=== PATIENT | female | born 1980 | race Caucasian/White ===

== ENCOUNTER 2016-04-01 01:57 | Inpatient (IN) | payer OTHER ==
[~2016-04-01] VITALS: Ht 180.3 cm; Wt 91.9 kg
[2016-04-01 03:50] VITALS: BP 152/99; RESP 20
[2016-04-01 03:51] VITALS: Ht 180.3 cm; Wt 91.9 kg
[2016-04-01] MEDS ORDERED: ONDANSETRON 4 MG INJ IV PRN (04:00)
[2016-04-01] MEDS: morphine 4 MG/ML VIAL IV PRN ×4 (04:17→19:50)
[2016-04-01 07:39] VITALS: BP 142/83; RESP 20
[2016-04-01] MEDS: FAMOTIDINE 20 MG INJ IV SCH ×2 (08:12→21:45)
[2016-04-01 08:32] LABS: BASOPHILS % 0.4 % (0.0-2.0); EOSINOPHILS % 0.4 % (0.0-7.0); HEMATOCRIT 34.3 % (37.0-47.0); HEMOGLOBIN 11.8 g/dl (12.0-16.0); LYMPHOCYTES # 2.7 10^3/ul (0.8-2.9); MEAN CORPUSCULAR HEMOGLOBIN 31.1 pg (29.0-33.0); MEAN CORPUSCULAR HGB CONC 34.5 g/dl (32.0-37.0); MEAN CORPUSCULAR VOLUME 90.2 fl (82.0-101.0); MONOCYTE # 0.9 10^3/ul (0.3-0.9); MONOCYTES % 7.8 % (0.0-11.0); NEUTROPHIL # 8.4 10^3/ul (1.6-7.5); NEUTROPHILS % 69.4 % (39.0-77.0); PLATELET COUNT 247 10^3/UL (140-440); UNCORRECTED WBC 12.1 10^3/ul (4.8-10.8); WHITE BLOOD COUNT 12.1 10^3/ul (4.8-10.8)
[2016-04-01] MEDS: DEXTROSE 5%-0.45% NACL 1,000 ML IV SCH ×2 (08:33→17:59)
[2016-04-01 08:35] LABS: CONDITION 1
[2016-04-01 08:49] LABS: ALBUMIN 3.2 g/dl (3.3-4.9)
[2016-04-01 08:50] LABS: POTASSIUM 3.5 mmol/L (3.5-5.1)
[2016-04-01 08:52] LABS: ALBUMIN/GLOBULIN RATIO 1.03; BILIRUBIN,INDIRECT 0.3 mg/dl (0-1.1); BILIRUBIN,TOTAL 0.3 mg/dl (0.2-1.3); CREATININE 0.7 mg/dl (0.44-1.00); TOTAL PROTEIN 6.3 g/dl (6.1-8.1)
[2016-04-01 08:53] LABS: CALCIUM 8.3 mg/dl (8.4-10.2)
[2016-04-01] MEDS ORDERED: metroNIDAZOLE 500 MG/NS (PMX) 100 ML IVPB SCH (11:00)
--- NOTE | 2016-04-01 11:06 | PN ---
Date/Time of Note Date/Time of Note DATE: 04/01/16 TIME: 11:00 Assessment/Plan VTE Prophylaxis VTE Prophylaxis Intervention: LMWH Lines/Catheters IV C[facility]ter [facility]from [facility] Saline Lock Assessment/Plan Chief Complaint/Hosp Course Hospitalist coverage S: 35-year-old female with abdominal pain/n/v for about 10 days. Had some chicken tacos. Significant other had tacos. No hematemesis or hematochezia. Subjective fever and chills. Fatigue and loss of appetite. Was able to go to work. On the seventh, patient went to ER. Hydrated and continue supportive care. Was not given antibiotics. Symptoms continued along with diarrhea. Pepto-Bismol was taken and this may have accounted for her dark stools. No previous similar problems. No hematuria. Only social alcohol. Treatment included Tylenol and rare Motrin. CAT scan concerning for multicentric stranding. O:vss PE No pallor adenopathy icterus Reg, no m/r/g ctab Bs+/ mild hyperactive. No r/r/g, flank ecchymosis. No cvat No edema/erythema or telangiectasias A/P 1. Colitis -infectious vs vascular; stable consult GI. No FH stroke/ vasculitis. Father had heart valve issues. Aunt w colon ca. 2. Anemia 3. Ho C-sec but no bleeding tendencies. Problems: Exam/Review of Systems Vital Signs Vitals Vital Signs Date Time Temp Pulse Resp B/P Pulse Ox O2 Delivery O2 Flow Rate FiO2 04/01/16 07:39 98.9 75 20 142/83 04/01/16 03:50 99 Intake and Output 03/31/16 03/31/16 04/01/16 15:00 23:00 07:00 Intake Total 240 ml Balance 240 ml Results Result Diagram: 04/01/16 0730 04/01/16 0730 Results 24 hrs Laboratory Tests Test 04/01/16 07:30 Alanine Aminotransferase (ALT/SGPT) 46 Albumin 3.2 L Albumin/Globulin Ratio 1.03 Alkaline Phosphatase 109 Anion Gap 15 Aspartate Amino Transf (AST/SGOT) 20 Basophils # 0.0 Basophils % 0.4 Blood Urea Nitrogen 5 L Calcium Level 8.3 L Carbon Dioxide Level 26 Chloride Level 101 Creatinine 0.70 Direct Bilirubin 0.00 Eosinophils # 0.0 Eosinophils % 0.4 Globulin 3.10 Glucose Level 96 Hematocrit 34.3 L Hemoglobin 11.8 L Indirect Bilirubin 0.3 Lymphocytes # 2.7 Lymphocytes % 22.0 Mean Corpuscular Hemoglobin 31.1 Mean Corpuscular Hemoglobin Concent 34.5 Mean Corpuscular Volume 90.2 Mean Platelet Volume 9.0 Monocytes # 0.9 Monocytes % 7.8 Neutrophils # 8.4 H Neutrophils % 69.4 Nucleated Red Blood Cells # 0.0 Nucleated Red Blood Cells % 0.0 Platelet Count 247 Potassium Level 3.5 Red Blood Count 3.80 L Red Cell Distribution Width 13.0 Sodium Level 138 Total Bilirubin 0.3 Total Protein 6.3 White Blood Count 12.1 H Medications Medications Current Medications Morphine Sulfate (morphine) 3 mg Q4H PRN IV PAIN LEVEL 6-10 Last administered on 04/01/16 08:27; Admin Dose 3 MG; Start 04/01/16 at 04:00 Ondansetron HCl (Zofran Inj) 4 mg Q6H PRN IV NAUSEA AND/OR VOMITING; Start at 04:00 Famotidine 20 mg 20 mg BID IV Last administered on 04/01/16 08:12; Admin Dose 20 MG; Start 04/01/16 at 09:00 Dextrose/Sodium Chloride (D5-1/2ns) 1,000 ml @ 100 mls/hr Q10H IV Last administered on 04/01/16 08:33; Admin Dose 100 MLS/HR; Start 04/01/16 at 08:30 ALLA PHAN MD Apr 01, 2016 11:06
[2016-04-01] MEDS ORDERED: ENOXAPARIN 40 MG/0.4 ML SYG SC SCH (12:00)
--- NOTE | 2016-04-01 12:58 | CONS ---
Date/Time of Note Date/Time of Note DATE: 04/01/16 TIME: 12:45 Assessment/Plan Assessment/Plan Additional Assessment/Plan Abdominal pain/nausea/vomiting Diarrhea * Concern for thrombophlebitis of the superior mesenteric vein * Stat CT abdomen angiogram ordered * Rule out other etiology * Review IBD serology * Monitor labs * Recommend surgery consult * Recommend vascular consult * Recommend anticoagulation * Stool OB * C. difficile stool test Further recommendations depend on clinical course Consultation Date/Type/Reason Admit Date/Time Apr 01, 2016 at 03:26 Hx of Present Illness 35 YO that presented to the ED with worsening GI complaints. Pt states that symptoms started TuesdayMar 22. She reported diffuse abdominal pain, nausea, non bloody bilious vomiting, and diarrhea that worsened over several days. She states that symptoms started to andriy on briefly but then intensified on Tuesday and she had a fever of 102.7. She later went [place] on TuesdayMar 25 because symptoms were so intense. Pt was treated with fluids and pain medication. She was told imaging suggested gallbladder sludge and was told LFTs were elevated. She was discharged and instructed to continue to hydrate. Pt states that symptoms improved slowly but have returned. She tried Pepto Bismol without relief in symptoms and she reported black stools shortly after ingestion. Pt states that warm baths helped with pain symptoms. She denies chills, sick contacts, travel outside [place], new medications, and chronic conditions. She went to [place] again on Tuesday and was treated for pain and nausea. Pt transferred to [facility] secondary to insurance capitation. Past Medical History Medical History: no pertinent history Past Surgical History Past Surgical Hx: noncontributory, other Social History Smoking Status: Never smoker Exam/Review of Systems Vital Signs Vitals Vital Signs Date Time Temp Pulse Resp B/P Pulse Ox O2 Delivery O2 Flow Rate FiO2 04/01/16 07:39 98.9 75 20 142/83 04/01/16 03:50 99 Intake and Output 03/31/16 03/31/16 04/01/16 15:00 23:00 07:00 Intake Total 240 ml Balance 240 ml Exam Constitutional: alert, oriented, well developed Psych: nl mood/affect, no complaints Head: atraumatic Eyes: EOMI, nl conjunctiva, nl lids, nl sclera ENMT: mucosa pink and moist, nl external ears & nose, nl lips & teeth, nl nasal mucosa & septum Respiratory: normal air movement Cardiovascular: regular rate and rhythm Gastrointestinal: soft, tender (Diffuse lower abdomen) Musculoskeletal: nl extremities to inspection Neurological: CAREER DEVELOPER II-XII intact Results Result Diagram: 04/01/16 0730 04/01/16 0730 Results 24 hrs Laboratory Tests Test 04/01/16 07:30 Alanine Aminotransferase (ALT/SGPT) 46 Albumin 3.2 L Albumin/Globulin Ratio 1.03 Alkaline Phosphatase 109 Anion Gap 15 Aspartate Amino Transf (AST/SGOT) 20 Basophils # 0.0 Basophils % 0.4 Blood Urea Nitrogen 5 L Calcium Level 8.3 L Carbon Dioxide Level 26 Chloride Level 101 Creatinine 0.70 Direct Bilirubin 0.00 Eosinophils # 0.0 Eosinophils % 0.4 Globulin 3.10 Glucose Level 96 Hematocrit 34.3 L Hemoglobin 11.8 L Indirect Bilirubin 0.3 Lymphocytes # 2.7 Lymphocytes % 22.0 Mean Corpuscular Hemoglobin 31.1 Mean Corpuscular Hemoglobin Concent 34.5 Mean Corpuscular Volume 90.2 Mean Platelet Volume 9.0 Monocytes # 0.9 Monocytes % 7.8 Neutrophils # 8.4 H Neutrophils % 69.4 Nucleated Red Blood Cells # 0.0 Nucleated Red Blood Cells % 0.0 Platelet Count 247 Potassium Level 3.5 Red Blood Count 3.80 L Red Cell Distribution Width 13.0 Serum HCG, Qualitative NEGATIVE Sodium Level 138 Total Bilirubin 0.3 Total Protein 6.3 White Blood Count 12.1 H Medications Medications Current Medications Morphine Sulfate (morphine) 3 mg Q4H PRN IV PAIN LEVEL 6-10 Last administered on 04/01/16 08:27; Admin Dose 3 MG; Start 04/01/16 at 04:00 Ondansetron HCl (Zofran Inj) 4 mg Q6H PRN IV NAUSEA AND/OR VOMITING; Start at 04:00 Famotidine 20 mg 20 mg BID IV Last administered on 04/01/16 08:12; Admin Dose 20 MG; Start 04/01/16 at 09:00 Dextrose/Sodium Chloride 1,000 ml @ 100 mls/hr Q10H IV Last administered on 08:33; Admin Dose 100 MLS/HR; Start 04/01/16 at 08:30 Ciprofloxacin/ Dextrose 100 ml @ 100 mls/hr Q12 IVPB ; Start 04/01/16 at 12:00 Metronidazole (Flagyl 500 Mg (Pmx)) 100 ml @ 100 mls/hr Q8 IVPB ; Start at 11:00 Enoxaparin Sodium (Lovenox) 40 mg DAILY SC ; Start 04/01/16 at 12:00 DANIEL FIELDS MD Apr 01, 2016 12:58
[2016-04-01 13:27] LABS: AMYLASE 54 U/L (11-123)
--- NOTE | 2016-04-01 13:50 | CONS ---
DATE OF ADMISSION: 04/01/2016 DATE OF CONSULTATION: 04/01/2016 TYPE OF CONSULTATION: Vascular surgery consultation. Dear Doctors: Ms. Tristan is a 35-year-old female who recently was admitted to [facility] to being transferred for abdominal pain that she has had over the course of 10 days. The patient mentions that about a week ago she went to [facility] for evaluation of abdominal pain that has been mainly periumbilical. At that time, they had seen some sludge upon ultrasound evaluation of her gal lbladder, otherwise the patient was sent home. She had a recurrence of the abdominal pain, which st ill persisted and had not resolved last night, in which she underwent a CT angiogram that identified the patient having a thrombosis of her superior mesenteric vein. At the moment, the patient has ab dominal pain, scale of 5 to 6 out of 10. She denies shortness of breath, chest pain, nausea, vomiti ng, fever or chills. She is not really able to eat much. She denies lower extremity claudication o r rest pain-like symptoms. She denies any family history of hypercoagulable state. No previous his tory of deep vein thrombosis, [place], or stroke. Patient denies any melena or hematochezia. REVIEW OF SYSTEMS: A 12-point review was performed and negative except for what is mentioned in the HPI. PAST MEDICAL HISTORY: None. PAST SURGICAL HISTORY: None. FAMILY HISTORY: Denies any hypercoagulable state. history: The patient has had 3 miscarr iages. All miscarriages had occurred during 5 to 6 weeks of her gestation. Her 4th child had an ear ly onset of labor at 36 weeks. SOCIAL HISTORY: Denies current use of tobacco, alcohol or illicit drug use. PHYSICAL EXAMINATION: GENERAL: Alert and oriented x3. Some abdominal discomfort. HEENT: Normocephalic, atraumatic. PERRLA, EOMI. Mucosa moist. NECK: Supple. No carotid bruit. PULMONARY: Clear to auscultation bilaterally. No crackles. CARDIOVASCULAR: S1, S2 present. No murmurs. ABDOMEN: Soft, truncal obesity. Tenderness in the periumbilical region. Pain scale of 5 to 6 out of 10. No peritonitis. EXTREMITIES: Lower extremity palpable femoral pulses, palpable pedal pulses. Motor and sensory int act. Capillary refill 2 to 3 seconds. No ulcers identified. ASSESSMENT AND PLAN: Superior mesenteric vein thrombosis: It seems the patient has developed a mes enteric vein thrombus that seems to be a bit unusual, given her age. The patient has denied any rec ent history of alcohol use or a family history of hypercoagulable state. I am concerned, given her age, that the patient has developed a thrombosis of her mesenteric vein and would recommend further workup. For now, would recommend starting the patient on anticoagulation, preferably Lovenox b.i.d. or a heparin drip. Would recommend obtaining a formal CT venogram to better delineate her venous return. This can be c ombined with an angiogram with arterial and delayed phase venous. Would recommend a general surgery evaluation, as the patient may require further intervention if she has further propagation of her thrombosis. From a vascular surgery standpoint, will continue to mo nitor the patient for now. Would further recommend hypercoagulable workup and hematology evaluation, as the patient has a histo ry of miscarriages x3 in her first trimester. Discussed the findings, plan and management with the patient and she understands. Thank you for allowing us to partake in the care of your patient. Please call with any questions. Dictated By: IBIS ESQUIVEL/NAOMI Conf#: [id number] DID#: [id number]
--- NOTE | 2016-04-01 14:30 | RADRPT ---
PROCEDURE: XR Chest. CLINICAL INDICATION: Medical screening TECHNIQUE: Chest AP portable. COMPARISON: No comparison available. FINDINGS: The mediastinal structures are unremarkable. The heart is normal in size and configuration. The pu lmonary vascularity is normal. The lung villarreal are unremarkable. No consolidation is identified. The pleural spaces are unremarkable. The axial skeleton is unremarkable. IMPRESSION: No active intrathoracic disease. RPTAT: HGDB .Reji Gonzalez MD, MD Date Time Electronically viewed and signed by .Reji Gonzalez MD, MD on 04/01/2016 14:29 .B/
[2016-04-01] MEDS ORDERED: SOD CHLORIDE 0.9% 100 ML ONE (17:05)
[2016-04-01] MEDS ORDERED: IOHEXOL 100 ML ONE (17:05)
[2016-04-01] MEDS ORDERED: IOHEXOL 350MG/ML 50 ML BTL ONE (17:06)
[2016-04-01] MEDS: CIPROFLOXACIN 200 MG/D5W IVPB 100 ML IVPB SCH ×2 (17:56→23:17)
--- NOTE | 2016-04-01 18:18 | CONS ---
Date/Time of Note Date/Time of Note DATE: 04/01/16 TIME: 18:04 Assessment/Plan Assessment/Plan Chief Complaint/Hosp Course ASSESSMENT AND PLAN: Hypercoagulable state with acute Superior mesenteric vein thrombosis: note that pt is on control- d/w pt - will be dc unusual event, given her age. The patient has denied any recent history of alcohol use, travel or a family history of hypercoagulable state. agree with anticoagulation, preferably Lovenox b.i.d at therapeutic dose proceed with hypercoagulable workup , incl tumor markers SURG and vascular surg f-up LEUKOCYTOSIS- WITH N DIFF looks reactive monitor ANEMIA- N CYTIC WITH N RDW COMPLETE W-UP MONITOR BLOOD COUNT CLOSELY history of miscarriages x3 in her first trimester. check JASSI and lupus panel Discussed the findings, plan and management with the patient and she understands. Thank you for allowing us to partake in the care of your patient. Please call with any questions. d/w Dr ALLA PHAN Problems: Consultation Date/Type/Reason Admit Date/Time Apr 01, 2016 at 03:26 Date of Consultation: Apr 01, 2016 [facility] thrombosis Referring Provider: ALLA PHAN MD Hx of Present Illness Ms. Tristan is a 35-year-old female who recently was admitted to [facility] secondary to being transferred for abdominal pain that she has had over the course of 10 days. The patient mentions that about a week ago she went to [place] [facility] for evaluation of abdominal pain that has been mainly periumbilical. At that time, they had seen some sludge upon ultrasound evaluation of her gallbladder, otherwise the patient was sent home. She had a recurrence of the abdominal pain, which still persisted and had not resolved last night, in which she underwent a CT angiogram that identified the patient having a thrombosis of her superior mesenteric vein. At the moment, the patient has abdominal pain, scale of 5 to 6 out of 10. She denies shortness of breath, chest pain, nausea, vomiting, fever or chills. She is not really able to eat much. She denies lower extremity claudication or rest pain-like symptoms. She denies any family history of hypercoagulable state. No previous history of deep vein thrombosis, [place], or stroke. Patient denies any melena or hematochezia. note that pt is on control REVIEW OF SYSTEMS: A 12-point review was performed and negative except for what is mentioned in the HPI. PAST MEDICAL HISTORY: None. PAST SURGICAL HISTORY: None. FAMILY HISTORY: Denies any hypercoagulable state. history: The patient has had 3 miscarriages. All miscarriages had occurred during 5 to 6 weeks of her gestation. Her 4th child had an early onset of labor at 36 weeks. SOCIAL HISTORY: Denies current use of tobacco, alcohol or illicit drug use. Psychological: nl mood/affect, no complaints Past Medical History Medical History: no pertinent history Past Surgical History Past Surgical Hx: noncontributory, other Social History Smoking Status: Never smoker Exam/Review of Systems Vital Signs Vitals Vital Signs Date Time Temp Pulse Resp B/P Pulse Ox O2 Delivery O2 Flow Rate FiO2 04/01/16 07:39 98.9 75 20 142/83 04/01/16 03:50 99 Intake and Output 03/31/16 03/31/16 04/01/16 15:00 23:00 07:00 Intake Total 240 ml Balance 240 ml Exam PHYSICAL EXAMINATION: GENERAL: Alert and oriented x3. Some abdominal discomfort. HEENT: Normocephalic, atraumatic. PERRLA, EOMI. Mucosa moist. NECK: Supple. No carotid bruit. PULMONARY: Clear to auscultation bilaterally. No crackles. CARDIOVASCULAR: S1, S2 present. No murmurs. ABDOMEN: Soft, truncal obesity. Tenderness in the periumbilical region. Pain scale of 5 to 6 out of 10. No peritonitis. EXTREMITIES: Lower extremity palpable femoral pulses, palpable pedal pulses. Motor and sensory intact. Capillary refill 2 to 3 seconds. No ulcers identified. Results Result Diagram: 04/01/16 0730 04/01/16 0730 Results 24 hrs Laboratory Tests Test 04/01/16 07:30 Alanine Aminotransferase (ALT/SGPT) 46 Albumin 3.2 L Albumin/Globulin Ratio 1.03 Alkaline Phosphatase 109 Amylase Level 54 Anion Gap 15 Aspartate Amino Transf (AST/SGOT) 20 Basophils # 0.0 Basophils % 0.4 Blood Urea Nitrogen 5 L Calcium Level 8.3 L Carbon Dioxide Level 26 Carcinoembryonic Antigen < 0.3 Chloride Level 101 Creatinine 0.70 Direct Bilirubin 0.00 Eosinophils # 0.0 Eosinophils % 0.4 Globulin 3.10 Glucose Level 96 Hematocrit 34.3 L Hemoglobin 11.8 L Indirect Bilirubin 0.3 Lipase 24 Lymphocytes # 2.7 Lymphocytes % 22.0 Mean Corpuscular Hemoglobin 31.1 Mean Corpuscular Hemoglobin Concent 34.5 Mean Corpuscular Volume 90.2 Mean Platelet Volume 9.0 Monocytes # 0.9 Monocytes % 7.8 Neutrophils # 8.4 H Neutrophils % 69.4 Nucleated Red Blood Cells # 0.0 Nucleated Red Blood Cells % 0.0 Platelet Count 247 Potassium Level 3.5 Red Blood Count 3.80 L Red Cell Distribution Width 13.0 Serum HCG, Qualitative NEGATIVE Sodium Level 138 Total Bilirubin 0.3 Total Protein 6.3 White Blood Count 12.1 H Medications Medications Current Medications Morphine Sulfate (morphine) 3 mg Q4H PRN IV PAIN LEVEL 6-10 Last administered on 04/01/16 13:08; Admin Dose 3 MG; Start 04/01/16 at 04:00 Ondansetron HCl (Zofran Inj) 4 mg Q6H PRN IV NAUSEA AND/OR VOMITING; Start at 04:00 Famotidine 20 mg 20 mg BID IV Last administered on 04/01/16 08:12; Admin Dose 20 MG; Start 04/01/16 at 09:00 Dextrose/Sodium Chloride 1,000 ml @ 100 mls/hr Q10H IV Last administered on 08:33; Admin Dose 100 MLS/HR; Start 04/01/16 at 08:30 Ciprofloxacin/ Dextrose (Cipro Ivpb) 100 ml @ 100 mls/hr Q12 IVPB Last administered on 04/01/16 17:56; Admin Dose 100 MLS/HR; Start 04/01/16 at 12:00 Enoxaparin Sodium 40 mg 40 mg DAILY SC Last administered on 04/01/16 13:36; Admin Dose 40 MG; Start 04/01/16 at 12:00 Metronidazole (Flagyl 500 Mg (Pmx)) 100 ml @ 100 mls/hr Q8 IVPB ; Start at 22:00 ALY HAMILTON MD Apr 01, 2016 18:17
--- NOTE | 2016-04-01 19:00 | RADRPT ---
PROCEDURE: CTA abdomen and pelvis with bilateral lower extremity runoff CLINICAL INDICATION: Abdominal pain, lower extremity pain and claudication. Possible thrombophleb itis of the superior mesenteric vein. TECHNIQUE: 0.63 mm axial images were obtained through the abdomen, pelvis and bilateral lower extr emities after the IV administration of 120 cc Omnipaque 350 IV contrast. 3-D, coronal and sagittal reconstructions were obtained. Automated exposure control was utilized. DLP = 1248.6 mGy-cm. CTDiVo l = 24.7, 8.2 mGy. One or more of the following post reduction techniques were used: - Automated exposure control. - Adjustment of the mA and/or Kv according to patient's size. - Use of iterative reconstruction technique COMPARISON: None available FINDINGS: Evaluation of the arterial vasculature is slightly limited secondary to suboptimal timing of the con trast bolus. CTA abdomen/pelvis: The abdominal aorta is patent throughout its entirety. No atherosclerotic disease is identified in the aorta. No aneurysm or stenosis is observed. The origin of the celiac artery is widely patent. Grossly normal filling of the visualized distal b ranches of the celiac artery is observed. The origin of the superior mesenteric artery is widely patent. Normal filling of the distal branche s of the superior mesenteric artery is observed. Origins of bilateral renal arteries are widely patent. Normal filling of the distal branches of the renal arteries is observed. Origin of the inferior mesenteric artery is widely patent. Normal filling of the distal branches of the inferior mesenteric artery is observed. Patent aortic bifurcation is observed. Minimal calcified atherosclerosis is noted in the mid right common iliac artery. The left common iliac artery is widely patent and normal appearing. Patent bi lateral common iliac artery bifurcations are identified. The bilateral external iliac and common femoral arteries are widely patent and normal appearing. Normal filling of the splenic vein, portal vein and distal branches of the portal vein is identified . Filling defect is identified in the superior mesenteric vein that extends into multiple feeding bran ches of the inferior mesenteric vein. Mild enhancement of the perez of the superior mesenteric vein and its feeding branches is observed. The superior mesenteric vein and its feeding branches appear expanded. The inferior mesenteric vein appears patent. CTA right lower extremity: Right common femoral artery demonstrates a patent, normal-appearing bifurcation. The superficial fe moral artery is widely patent and normal-appearing. Popliteal artery is patent and normal. Normal three-vessel runoff to the ankle and foot is observed. CTA left lower extremity: Left common femoral artery demonstrates a patent, normal-appearing bifurcation. The superficial fem oral artery is widely patent and normal-appearing. Popliteal artery is patent and normal. Normal th ree-vessel runoff to the ankle and foot is observed. CT Abdomen/pelvis: Minimal subsegmental atelectasis is noted in the visualized lower lungs. Heart size is within aneta l limits. The liver, gallbladder, pancreas, spleen and adrenals are unremarkable. The kidneys demonstrate normal, symmetric enhancement. The right kidney is low-lying and mildly mal rotated. No obstructive uropathy is observed. The bladder is filled with a small to moderate amount of urine. The uterus has an unremarkable appearance. Air and stool are seen scattered within the colon. The appendix appears grossly normal. No dilate d loops of small bowel are observed. The stomach and duodenum are unremarkable. Mild fat stranding is identified in the left mid abdominal mesenteric there are associated multiple, mildly prominent lymph nodes in the region of fat stranding. The largest distinct lymph node measu res 2.0 x 0.9 cm. Small amount of free fluid is identified in the posterior lower pelvis. Osseous structures are intact and normal-appearing. Subcutaneous and muscular soft tissues surround ing the abdomen and pelvis are unremarkable. CT Lower Extremities: Osseous structures of the lower extremities are intact and without destructive bony lesion. Soft ti ssues surrounding the lower extremities are unremarkable. IMPRESSION: Extensive, occlusive filling defect throughout the superior mesenteric vein that extends into multip le feeding branches of the superior mesenteric vein. There is associated enhancement of the perez o f the superior mesenteric vein and its feeding branches as well as expansion of these veins. Findin gs are compatible with occlusive thrombus in the superior mesenteric vein and its feeding branches. No extension of thrombus into the portal vein is noted. Associated mid abdominal mesenteric fat stranding surrounding the thrombosed superior mesenteric vei n and its feeding branches as well as associated mild mid abdominal mesenteric adenopathy. Finding likely reflects mesenteritis or mesenteric edema associated with superior mesenteric vein thrombosis . Limited evaluation of the arterial vasculature of the abdomen, pelvis and lower extremities due to s uboptimal timing of the contrast bolus. Minimal calcified atherosclerosis in the right common iliac artery. Otherwise, grossly unremarkable arterial vasculature of the abdomen, pelvis and bilateral lower extremities. Call report: A call report of the findings was made to the patient's nurse, Tamara, at 6:54 PM on 04/01/2016 . RPTAT: AA .Frank Rainey MD, MD Date Time Electronically viewed and signed by .Frank Rainey MD, MD on 04/01/2016 18:59 .P/
[2016-04-01 19:19] VITALS: BP 142/93; RESP 20
[2016-04-01 20:24] LABS: IRON 20 ug/dl (35-150); LACTATE DEHYDROGENASE 351 IU/L (313-618)
[2016-04-01 20:25] LABS: URIC ACID 4.4 mg/dl (3.1-7.9)
[2016-04-01 20:34] LABS: TOTAL IRON BINDING CAPACITY 268 ug/dl (241-421)
[2016-04-01 20:51] LABS: RETICULOCYTE COUNT % 0.6 % (0.5-1.5)
--- NOTE | 2016-04-01 20:52 | RADRPT ---
Vent Rate: 63 bpm RR Interval: 0 msec WV Interval: 134 msec QRS Duration: 104 msec QT Interval: 430 msec QTC Interval: 440 msec P-R-T Rand: 39 - 54 - 42 degrees Normal sinus rhythm Normal ECG Electronically Signed By: Gerald Urbina [id number]
[2016-04-01 21:03] LABS: CANCER ANTIGEN 125 13.2 U/ml (0.0-35.0); CARCINOEMBRYONIC ANTIGEN < 0.3 ng/ml (0.0-5.0)
[2016-04-01 21:33] LABS: FOLATE 18.3 ng/ml (2.8-20.0)
[2016-04-01 21:34] LABS: CANCER ANTIGEN 19-9 7.1 U/ml (0.0-37.0)
[2016-04-01] MEDS: metroNIDAZOLE 500 MG/NS (PMX) 100 ML IVPB SCH (21:45)
[2016-04-01 22:30] VITALS: BP 140/80; PULSE 78; RESP 18
--- NOTE | 2016-04-01 23:09 | HP ---
Date/Time of Note Date/Time of Note DATE: 04/01/16 TIME: 23:09 Assessment/Plan VTE Prophylaxis VTE Prophylaxis Intervention: LMWH Lines/Catheters IV Catheter Type (from Nrsg): Saline Lock Assessment/Plan Assessment/Plan 1. Abd pain - since admission pt had Angiogram, which showed superior mesentric rere thrombosis - Cont anti-coagulation - hematology and vascular on board, appreciate input - f/u hypercoagulation w/u - pain meds as needed 2. Leukocytosis: likely stress induced. will monitor 3. Anemia - w/u for iron def HPI/ROS Admit Date/Time Admit Date/Time Apr 01, 2016 at 03:26 Hx of Present Illness Patient is a 35 yo female with no significant PMH who initially presented to [place] with abd pain, N/V and diarrhea of about 2 weeks duration. She was transferred here because of insurance reason. Denied fever/chills, CP or SOB. Recent and u/s showed GB sludge. CT scan showed multicentric stranding. I was told by [place] ER physician that pt was evaluated by a surgeon who suspected vasculitis and rec'd lupus work-up. Currently her symptoms have improved and she actually looks comfortable. . ROS Psychological: nl mood/affect, no complaints PMH/Family/Social Past Medical History Medical History: no pertinent history Past Surgical History Past Surgical Hx: noncontributory, other Social History Alcohol Use: none Smoking Status: Never smoker Drug Use: none Exam/Review of Systems Vital Signs Vitals Vital Signs Date Time Temp Pulse Resp B/P Pulse Ox O2 Delivery O2 Flow Rate FiO2 04/01/16 19:19 98.3 75 20 142/93 98 Intake and Output 03/31/16 03/31/16 04/01/16 15:00 23:00 07:00 Intake Total 240 ml Balance 240 ml Exam Constitutional: alert, oriented, well developed Psych: no complaints Head: atraumatic Eyes: EOMI, PERRL Neck: supple Respiratory: clear to auscultation, normal air movement Cardiovascular: nl pulses, regular rate and rhythm Gastrointestinal: soft, tender Extremities: normal pulses Labs Result Diagram: 04/01/16 0730 04/01/16 0730 Medications Medications Current Medications Morphine Sulfate (morphine) 3 mg Q4H PRN IV PAIN LEVEL 6-10 Last administered on 04/01/16t 19:50; Admin Dose 3 MG; Start 2/16/17 at 04:00 Ondansetron HCl (Zofran Inj) 4 mg Q6H PRN IV NAUSEA AND/OR VOMITING; Start at 04:00 Famotidine 20 mg 20 mg BID IV Last administered on 04/01/16 21:45; Admin Dose 20 MG; Start 04/01/16 at 09:00 Dextrose/Sodium Chloride 1,000 ml @ 100 mls/hr Q10H IV Last administered on 08:33; Admin Dose 100 MLS/HR; Start 04/01/16 at 08:30 Ciprofloxacin/ Dextrose 100 ml @ 100 mls/hr Q12 IVPB Last administered on 04/01 17:56; Admin Dose 100 MLS/HR; Start 04/01/16 at 12:00 Metronidazole (Flagyl 500 Mg (Pmx)) 100 ml @ 100 mls/hr Q8 IVPB Last administered on 04/01/16 21:45; Admin Dose 100 MLS/HR; Start 04/01/16 at 22:00 Enoxaparin Sodium (Lovenox) 90 mg BID SC ; Start 04/02/16 at 09:00 AICHA LIVE MD Apr 01, 2016 23:09
[2016-04-02] MEDS: morphine 4 MG/ML VIAL IV PRN ×6 (00:17→22:06)
[2016-04-02] MEDS: DEXTROSE 5%-0.45% NACL 1,000 ML IV SCH ×2 (00:59→16:58)
[2016-04-02] MEDS: metroNIDAZOLE 500 MG/NS (PMX) 100 ML IVPB SCH ×3 (05:30→22:09)
[2016-04-02 06:43] LABS: BASOPHILS % 0.3 % (0.0-2.0); EOSINOPHILS # 0.1 10^3/ul (0.0-0.5); HEMATOCRIT 33.7 % (37.0-47.0); HEMOGLOBIN 11.5 g/dl (12.0-16.0); LYMPHOCYTES # 2.4 10^3/ul (0.8-2.9); LYMPHOCYTES % 27.2 % (15.0-51.0); MEAN CORPUSCULAR HEMOGLOBIN 30.9 pg (29.0-33.0); MEAN CORPUSCULAR HGB CONC 34.1 g/dl (32.0-37.0); MEAN CORPUSCULAR VOLUME 90.7 fl (82.0-101.0); MEAN PLATELET VOLUME 8.7 fl (7.4-10.4); MONOCYTE # 0.8 10^3/ul (0.3-0.9); MONOCYTES % 8.6 % (0.0-11.0); NEUTROPHIL # 5.7 10^3/ul (1.6-7.5); NEUTROPHILS % 62.9 % (39.0-77.0); PLATELET COUNT 271 10^3/UL (140-440); RED BLOOD COUNT 3.72 10^6/ul (4.20-5.40); RED CELL DISTRIBUTION WIDTH 12.8 % (11.5-14.5)
[2016-04-02 06:54] LABS: CONDITION 1
[2016-04-02 07:12] LABS: INR 1.02; PROTIME 13.4 Sec (12.2-14.2)
[2016-04-02 07:26] VITALS: BP 128/78; RESP 18
[2016-04-02 07:51] LABS: ALBUMIN 3.1 g/dl (3.3-4.9); POTASSIUM 3.7 mmol/L (3.5-5.1)
[2016-04-02 07:53] LABS: BILIRUBIN,INDIRECT 0.3 mg/dl (0-1.1); BILIRUBIN,TOTAL 0.3 mg/dl (0.2-1.3); CREATININE 0.69 mg/dl (0.44-1.00)
[2016-04-02 07:54] LABS: PHOSPHORUS 3.6 mg/dl (2.5-4.9); TOTAL PROTEIN 6.2 g/dl (6.1-8.1)
[2016-04-02 07:55] LABS: CALCIUM 8.3 mg/dl (8.4-10.2); MAGNESIUM 2.2 mg/dl (1.7-2.5)
--- NOTE | 2016-04-02 08:13 | CONS ---
Date/Time of Note Date/Time of Note DATE: 04/02/16 TIME: 08:11 Assessment/Plan Assessment/Plan Additional Assessment/Plan Abdominal pain/nausea/vomiting Diarrhea * Concern for thrombophlebitis of the superior mesenteric vein * Stat CT abdomen angiogram ordered * Rule out other etiology * Review IBD serology * Monitor labs * Recommend surgery consult * Recommend vascular consult * Recommend anticoagulation * Stool OB * C. difficile stool test Further recommendations depend on clinical course Consultation Date/Type/Reason Admit Date/Time Apr 01, 2016 at 03:26 Initial Consult Date 04/01/16 Type of Consultation: Gastroenterology Referring Provider: ALLA PHAN MD 24 HR Interval Summary Free Text/Dictation Lovenox twice daily per HemeOnc Patient reports abdominal pain improving We will consider repeat CT angiogram Tuesday or Tuesday Exam/Review of Systems Vital Signs Vitals Vital Signs Date Time Temp Pulse Resp B/P Pulse Ox O2 Delivery O2 Flow Rate FiO2 04/02/16 07:26 98.1 67 18 128/78 96 04/01/16 22:30 Room Air Intake and Output 04/01/16 04/01/16 04/02/16 15:00 23:00 07:00 Intake Total 100 ml 1080 ml 1990 ml Balance 100 ml 1080 ml 1990 ml Exam Constitutional: alert, oriented, well developed Psych: nl mood/affect, no complaints Head: atraumatic Eyes: EOMI, nl conjunctiva, nl lids, nl sclera ENMT: mucosa pink and moist, nl external ears & nose, nl lips & teeth, nl nasal mucosa & septum Respiratory: normal air movement Cardiovascular: regular rate and rhythm Gastrointestinal: soft, tender (Diffuse lower abdomen) Musculoskeletal: nl extremities to inspection Neurological: HEALTH CARE ATTORNEY II-XII intact Results Result Diagram: 04/02/16 0557 04/01/16 0730 Results 24 hrs Laboratory Tests Test 04/01/16 19:55 04/02/16 05:57 Absolute Reticulocyte Count 0.024 CA 125 Antigen 13.2 CA 19-9 Antigen 7.1 Carcinoembryonic Antigen < 0.3 Erythrocyte Sedimentation Rate 78 H Ferritin 221.0 H Folate 18.3 HIV (1&2) Antibody NEGATIVE Iron Level 20 L Lactate Dehydrogenase 351 Percent Iron Saturation 7 L Percent Reticulocyte Count 0.6 Thyroid Stimulating Hormone (TSH) 1.340 Pending Total Iron Binding Capacity 268 Uric Acid 4.4 Vitamin B12 Level 999 H Activated Partial Thromboplast Time 26.1 Alanine Aminotransferase (ALT/SGPT) 36 Albumin 3.1 L Albumin/Globulin Ratio 1.00 Alkaline Phosphatase 97 Anion Gap 15 Aspartate Amino Transf (AST/SGOT) 23 Basophils # 0.0 Basophils % 0.3 Blood Urea Nitrogen 4 L Calcium Level 8.3 L Carbon Dioxide Level 26 Chloride Level 101 Creatinine 0.69 Direct Bilirubin 0.00 Eosinophils # 0.1 Eosinophils % 1.0 Globulin 3.10 Glucose Level 122 Hematocrit 33.7 L Hemoglobin 11.5 L INR International Normalized Ratio 1.02 Indirect Bilirubin 0.3 Lactic Acid Level 0.7 Lipase 57 Lymphocytes # 2.4 Lymphocytes % 27.2 Magnesium Level 2.2 Mean Corpuscular Hemoglobin 30.9 Mean Corpuscular Hemoglobin Concent 34.1 Mean Corpuscular Volume 90.7 Mean Platelet Volume 8.7 Monocytes # 0.8 Monocytes % 8.6 Neutrophils # 5.7 Neutrophils % 62.9 Nucleated Red Blood Cells # 0.0 Nucleated Red Blood Cells % 0.0 Phosphorus Level 3.6 Platelet Count 271 Potassium Level 3.7 Prothrombin Time 13.4 Prothrombin Time Ratio 1.0 Red Blood Count 3.72 L Red Cell Distribution Width 12.8 Sodium Level 138 Total Bilirubin 0.3 Total Protein 6.2 White Blood Count 9.0 # Medications Medications Current Medications Morphine Sulfate (morphine) 3 mg Q4H PRN IV PAIN LEVEL 6-10 Last administered on 04/02/16 05:27; Admin Dose 3 MG; Start 04/01/16 at 04:00 Ondansetron HCl (Zofran Inj) 4 mg Q6H PRN IV NAUSEA AND/OR VOMITING; Start at 04:00 Famotidine 20 mg 20 mg BID IV Last administered on 04/01/16 21:45; Admin Dose 20 MG; Start 04/01/16 at 09:00 Dextrose/Sodium Chloride 1,000 ml @ 100 mls/hr Q10H IV Last administered on 00:59; Admin Dose 100 MLS/HR; Start 04/01/16 at 08:30 Ciprofloxacin/ Dextrose 100 ml @ 100 mls/hr Q12 IVPB Last administered on 04/01 23:17; Admin Dose 100 MLS/HR; Start 04/01/16 at 12:00 Metronidazole (Flagyl 500 Mg (Pmx)) 100 ml @ 100 mls/hr Q8 IVPB Last administered on 04/02/16t 05:30; Admin Dose 100 MLS/HR; Start 04/01/16 at 22:00 Enoxaparin Sodium (Lovenox) 90 mg BID SC ; Start 04/02/16 at 09:00 KAMAR PALENCIA Apr 02, 2016 08:13
[2016-04-02 08:22] LABS: THYROID STIMULATING HORMONE 1.51 MIU/L (0.465-4.680)
[2016-04-02] MEDS: FAMOTIDINE 20 MG INJ IV SCH ×2 (09:34→20:38)
[2016-04-02] MEDS: CIPROFLOXACIN 200 MG/D5W IVPB 100 ML IVPB SCH ×2 (09:34→20:38)
[2016-04-02] MEDS: ENOXAPARIN 100 MG/ML SYG SC SCH ×2 (09:52→21:05)
--- NOTE | 2016-04-02 14:37 | PN ---
Date/Time of Note Date/Time of Note DATE: 04/02/16 TIME: 14:20 Assessment/Plan VTE Prophylaxis VTE Prophylaxis Intervention: LMWH Lines/Catheters IV Catheter Type (from [facility]): Saline Lock Assessment/Plan Chief Complaint/Hosp Course Hospitalist coverage- S: 35yr F w abd pain/n/v for about 10 days. Had some chicken tacos. Significant other had tacos. No hematemesis or hematochezia. Subjective fever and chills. Fatigue and loss of appetite. Was able to go to work. On the seventh, pt went to ER. Hydrated and cont supportive care. Was not given antibiotics. Symptoms continued along w diarrhea. Pepto-Bismol was taken and this may have accounted for her dark stools. No previous similar problems. No hematuria. Only social alcohol. Treatment included Tylenol and rare Motrin. CT concerning for multicentric stranding. 04/02: Less pain. No nausea vomiting fever. Appreciate clinical consultant assistance. O:vss PE No pallor adenopathy Reg, no m/r/g ctab Bs+ mild tender. No r/r/g, flank ecchymosis. No edema A/P 1. Colitis -ischemic/vascular vs infectious; stable Rx SMV clot. No FH stroke/ vasculitis. Ro IBD. Father had heart valve issues. Aunt w colon ca. Ho 3 miscarriages. Lovenox for now; will switch to Eliquis tuesday. 2. Anemia- chencho 3. Ho C-sec but no bleeding tendencies. 4. 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 Does not require surgery at this time. Hypercoagulable workup. Ro DVT. Problems: Exam/Review of Systems Vital Signs Vitals Vital Signs Date Time Temp Pulse Resp B/P Pulse Ox O2 Delivery O2 Flow Rate FiO2 04/02/16 07:26 98.1 67 18 128/78 96 04/01/16 22:30 Room Air Intake and Output 04/01/16 04/01/16 04/02/16 15:00 23:00 07:00 Intake Total 100 ml 1080 ml 1990 ml Balance 100 ml 1080 ml 1990 ml Results Result Diagram: 04/02/16 0557 04/02/16 0557 Results 24 hrs Laboratory Tests Test 04/01/16 19:55 04/02/16 05:57 Absolute Reticulocyte Count 0.024 CA 125 Antigen 13.2 CA 19-9 Antigen 7.1 Carcinoembryonic Antigen < 0.3 Erythrocyte Sedimentation Rate 78 H Ferritin 221.0 H Folate 18.3 HIV (1&2) Antibody NEGATIVE Iron Level 20 L Lactate Dehydrogenase 351 Percent Iron Saturation 7 L Percent Reticulocyte Count 0.6 Thyroid Stimulating Hormone (TSH) 1.340 1.510 Total Iron Binding Capacity 268 Uric Acid 4.4 Vitamin B12 Level 999 H Activated Partial Thromboplast Time 26.1 Alanine Aminotransferase (ALT/SGPT) 36 Albumin 3.1 L Albumin/Globulin Ratio 1.00 Alkaline Phosphatase 97 Anion Gap 15 Aspartate Amino Transf (AST/SGOT) 23 Basophils # 0.0 Basophils % 0.3 Blood Urea Nitrogen 4 L Calcium Level 8.3 L Carbon Dioxide Level 26 Chloride Level 101 Creatinine 0.69 Direct Bilirubin 0.00 Eosinophils # 0.1 Eosinophils % 1.0 Globulin 3.10 Glucose Level 122 Hematocrit 33.7 L Hemoglobin 11.5 L Hemoglobin A1c 5.5 INR International Normalized Ratio 1.02 Indirect Bilirubin 0.3 Lactic Acid Level 0.7 Lipase 57 Lymphocytes # 2.4 Lymphocytes % 27.2 Magnesium Level 2.2 Mean Corpuscular Hemoglobin 30.9 Mean Corpuscular Hemoglobin Concent 34.1 Mean Corpuscular Volume 90.7 Mean Platelet Volume 8.7 Monocytes # 0.8 Monocytes % 8.6 Neutrophils # 5.7 Neutrophils % 62.9 Nucleated Red Blood Cells # 0.0 Nucleated Red Blood Cells % 0.0 Phosphorus Level 3.6 Platelet Count 271 Potassium Level 3.7 Prothrombin Time 13.4 Prothrombin Time Ratio 1.0 Red Blood Count 3.72 L Red Cell Distribution Width 12.8 Sodium Level 138 Total Bilirubin 0.3 Total Protein 6.2 White Blood Count 9.0 # Medications Medications Current Medications Morphine Sulfate (morphine) 3 mg Q4H PRN IV PAIN LEVEL 6-10 Last administered on 04/02/16 13:53; Admin Dose 3 MG; Start 04/01/16 at 04:00 Ondansetron HCl (Zofran Inj) 4 mg Q6H PRN IV NAUSEA AND/OR VOMITING; Start at 04:00 Famotidine 20 mg 20 mg BID IV Last administered on 04/02/16 09:34; Admin Dose 20 MG; Start 04/01/16 at 09:00 Dextrose/Sodium Chloride 1,000 ml @ 100 mls/hr Q10H IV Last administered on 00:59; Admin Dose 100 MLS/HR; Start 04/01/16 at 08:30 Ciprofloxacin/ Dextrose 100 ml @ 100 mls/hr Q12 IVPB Last administered on 04/02 09:34; Admin Dose 100 MLS/HR; Start 04/01/16 at 12:00 Metronidazole (Flagyl 500 Mg (Pmx)) 100 ml @ 100 mls/hr Q8 IVPB Last administered on 04/02/16 13:52; Admin Dose 100 MLS/HR; Start 04/01/16 at 22:00 Enoxaparin Sodium (Lovenox) 90 mg BID SC Last administered on 04/02/16 09:52; Admin Dose 90 MG; Start 04/02/16 at 09:00 ALLA PHAN MD Apr 02, 2016 14:35
[2016-04-02] MEDS ORDERED: BISACODYL (EC) 5 MG TAB PO ONE (15:30)
--- NOTE | 2016-04-02 16:21 | CONS ---
DATE OF ADMISSION: 04/01/2016 DATE OF CONSULTATION: 04/02/2016 REASON FOR CONSULTATION: Abdominal pain and mesenteric venous thrombosis. HISTORY OF PRESENT ILLNESS: The patient is an otherwise healthy and fit 35-year-old female who has had no previous hospitalizations or illnesses. She presented to [facility] approximately 10 da ys ago with severe abdominal pain. She was treated and released. She returned to [facility] 2 nights ago where she was noted to have severe abdominal pain and was transferred here. Imaging wor kup here was compatible with mesenteric venous thrombosis. The patient has been seen in vascular knowles rgical consultation as well as hematologic consultation. She has been started on a heparin drip. H er pain scale on admission, which was 10, has come down to 4. Also, her white blood cell count whic h was 12,000 on admission, has come down to normal. Part of her symptom complex included fevers wit h chills and inability to eat with development of severe abdominal pain. The patient has been n.p.o . since she has been here. Her pain is now quite manageable. Of note, is the fact that the patient uses a NuvaRing for contraception and she removed her NuvaRing just yesterday. OUTPATIENT MEDICATIONS: None. ALLERGIES: NONE. REVIEW OF SYSTEMS: HEAD, EARS, EYES, NOSE AND THROAT: Unremarkable. PULMONARY: No history of pneumonia or shortness of breath. CARDIAC: No history of chest pain, MT, or arrhythmia. ABDOMEN: As in the HPI. EXTREMITIES: Unremarkable. PHYSICAL EXAMINATION: GENERAL: The patient is a fit 35-year-old female who is awake and alert, in no acute distress. HEAD, EARS, EYES, NOSE, THROAT: Within normal limits. Sclerae nonicteric. LUNGS: Clear. HEART: Regular rhythm. ABDOMEN: Soft with tenderness in the left mid abdomen with slight guarding but no rebound. Bowel s ounds are normoactive. EXTREMITIES: Unremarkable. LABORATORY DATA: Today's hematocrit is 33 with a white count of 9000. INR is 1.02. IMAGING: Abdominal angiography shows extensive occlusive filling defects throughout the superior me senteric vein extending into multiple feeding branches of the superior mesenteric vein. There is as sociated abdominal mesenteric fat stranding suggesting mesenteric edema associated with this thrombo sis. PLAN: The patient has been appropriately started on a heparin drip. Further vascular surgical test ing is scheduled. Plan for medical treatment with surgery reserved for development of medical treat ment failure. Further recommendations on this patient will of course depend on the patient's furthe r workup and clinical course. I will follow with you. Dictated By: ALPHONSO FELIPE/NAOMI Conf#: [id number] DID#: [id number]
--- NOTE | 2016-04-02 16:26 | RADRPT ---
PROCEDURE: Ultrasound of the bilateral lower extremity venous system. CLINICAL INDICATION: Bilateral leg pain and swelling, deep venous thrombosis TECHNIQUE: Cuhrch scale with and without compression, color doppler, spectral doppler of the venous system of the bilateral lower extremities was performed. Venous augmentation maneuvers were utilized . COMPARISON: No prior studies are available for comparison. FINDINGS: RIGHT: Common femoral vein: Patent. Superficial femoral vein: Patent. Popliteal vein: Patent. Calf veins: Patent. No soft tissue abnormalities are identified. LEFT: Common femoral vein: Patent. Superficial femoral vein: Patent. Popliteal vein: Patent. Calf veins: Patent. No soft tissue abnormalities are identified. IMPRESSION: No evidence of a deep vein thrombosis within the bilateral lower extremities. RPTAT: AADD .Renato Acuña MD, Date Time Electronically viewed and signed by .Renato Acuña MD, on 04/02/2016 16:26 .B/
[2016-04-02] MEDS: SENNA/DOCUSATE NA (8.6MG/50MG) TAB PO SCH (18:04)
[2016-04-02 20:00] VITALS: BP 150/87; PULSE 73; RESP 20
--- NOTE | 2016-04-02 20:22 | CONS ---
Date/Time of Note Date/Time of Note DATE: 04/02/16 TIME: 20:18 Assessment/Plan Assessment/Plan Chief Complaint/Hosp Course ASSESSMENT AND PLAN: Hypercoagulable state with acute Superior mesenteric vein thrombosis: note that pt is on control- d/w pt - dc unusual event, given her age. The patient has denied any recent history of alcohol use, travel or a family history of hypercoagulable state. agree with anticoagulation, post Lovenox b.i.d at therapeutic dose, now on ELIQUIS complete hypercoagulable workup , incl tumor markers SURG and vascular surg f-up LEUKOCYTOSIS- WITH N DIFF looks reactive monitor ANEMIA- N CYTIC WITH N RDW COMPLETE W-UP MONITOR BLOOD COUNT CLOSELY history of miscarriages x3 in her first trimester. JASSI and lupus panel- P Discussed the findings, plan and management with the patient and she understands. Thank you for allowing us to partake in the care of your patient. Please call with any questions. d/w Dr ALLA PHAN Problems: Consultation Date/Type/Reason Admit Date/Time Apr 01, 2016 at 03:26 Initial Consult Date 04/01/16 Type of Consultation: [facility] Referring Provider: ALLA PHAN MD 24 HR Interval Summary Free Text/Dictation ALL NOTED + ABD PAIN AND BLOATING ON LOVENOX STARTED ON ELIQUIS Exam/Review of Systems Vital Signs Vitals Vital Signs Date Time Temp Pulse Resp B/P Pulse Ox O2 Delivery O2 Flow Rate FiO2 04/02/16 07:26 98.1 67 18 128/78 96 04/01/16 22:30 Room Air Intake and Output 04/01/16 04/01/16 04/02/16 15:00 23:00 07:00 Intake Total 100 ml 1080 ml 1990 ml Balance 100 ml 1080 ml 1990 ml Exam GENERAL: Alert and oriented x3. Some abdominal discomfort. HEENT: Normocephalic, atraumatic. PERRLA, EOMI. Mucosa moist. NECK: Supple. No carotid bruit. PULMONARY: Clear to auscultation bilaterally. No crackles. CARDIOVASCULAR: S1, S2 present. No murmurs. ABDOMEN: Soft, truncal obesity. Tenderness in the periumbilical region, + abd distention. Pain scale of 5 to 6 out of 10. No peritonitis. EXTREMITIES: Lower extremity palpable femoral pulses, palpable pedal pulses. Motor and sensory intact. Capillary refill 2 to 3 seconds. No ulcers identified. Results Result Diagram: 04/02/16 0557 04/02/16 0557 Results 24 hrs Laboratory Tests Test 04/02/16 05:57 Activated Partial Thromboplast Time 26.1 Alanine Aminotransferase (ALT/SGPT) 36 Albumin 3.1 L Albumin/Globulin Ratio 1.00 Alkaline Phosphatase 97 Anion Gap 15 Aspartate Amino Transf (AST/SGOT) 23 Basophils # 0.0 Basophils % 0.3 Blood Urea Nitrogen 4 L Calcium Level 8.3 L Carbon Dioxide Level 26 Chloride Level 101 Creatinine 0.69 Direct Bilirubin 0.00 Eosinophils # 0.1 Eosinophils % 1.0 Globulin 3.10 Glucose Level 122 Hematocrit 33.7 L Hemoglobin 11.5 L Hemoglobin A1c 5.5 INR International Normalized Ratio 1.02 Indirect Bilirubin 0.3 Lactic Acid Level 0.7 Lipase 57 Lymphocytes # 2.4 Lymphocytes % 27.2 Magnesium Level 2.2 Mean Corpuscular Hemoglobin 30.9 Mean Corpuscular Hemoglobin Concent 34.1 Mean Corpuscular Volume 90.7 Mean Platelet Volume 8.7 Monocytes # 0.8 Monocytes % 8.6 Neutrophils # 5.7 Neutrophils % 62.9 Nucleated Red Blood Cells # 0.0 Nucleated Red Blood Cells % 0.0 Phosphorus Level 3.6 Platelet Count 271 Potassium Level 3.7 Prothrombin Time 13.4 Prothrombin Time Ratio 1.0 Red Blood Count 3.72 L Red Cell Distribution Width 12.8 Sodium Level 138 Thyroid Stimulating Hormone (TSH) 1.510 Total Bilirubin 0.3 Total Protein 6.2 White Blood Count 9.0 # Medications Medications Current Medications Morphine Sulfate (morphine) 3 mg Q4H PRN IV PAIN LEVEL 6-10 Last administered on 04/02/16 18:06; Admin Dose 3 MG; Start 04/01/16 at 04:00 Ondansetron HCl (Zofran Inj) 4 mg Q6H PRN IV NAUSEA AND/OR VOMITING; Start at 04:00 Famotidine 20 mg 20 mg BID IV Last administered on 04/02/16 09:34; Admin Dose 20 MG; Start 04/01/16 at 09:00 Dextrose/Sodium Chloride 1,000 ml @ 100 mls/hr Q10H IV Last administered on 2/ 17/17at 16:58; Admin Dose 100 MLS/HR; Start 04/01/16 at 08:30 Ciprofloxacin/ Dextrose 100 ml @ 100 mls/hr Q12 IVPB Last administered on 04/02 09:34; Admin Dose 100 MLS/HR; Start 04/01/16 at 12:00 Metronidazole (Flagyl 500 Mg (Pmx)) 100 ml @ 100 mls/hr Q8 IVPB Last administered on 04/02/16 13:52; Admin Dose 100 MLS/HR; Start 04/01/16 at 22:00 Enoxaparin Sodium (Lovenox) 90 mg BID SC Last administered on 04/02/16 09:52; Admin Dose 90 MG; Start 04/02/16 at 09:00; Stop 04/04/16 at 09:00 Apixaban (Eliquis) 5 mg BID PO ; Start 04/04/16 at 21:00 Senna/Docusate Sodium (Senokot-S) 2 tab DAILY PO Last administered on 18:04; Admin Dose 2 TAB; Start 04/02/16 at 15:30 ALY HAMILTON MD Apr 02, 2016 20:21
[2016-04-03] MEDS: DEXTROSE 5%-0.45% NACL 1,000 ML IV SCH ×3 (00:30→20:06)
[2016-04-03] MEDS: morphine 4 MG/ML VIAL IV PRN ×5 (01:49→18:20)
[2016-04-03 05:15] LABS: ALBUMIN 3.1 g/dl (3.3-4.9); POTASSIUM 3.6 mmol/L (3.5-5.1)
[2016-04-03 05:17] LABS: CREATININE 0.74 mg/dl (0.44-1.00)
[2016-04-03 05:18] LABS: ALBUMIN/GLOBULIN RATIO 0.96; BILIRUBIN,INDIRECT 0.4 mg/dl (0-1.1); BILIRUBIN,TOTAL 0.4 mg/dl (0.2-1.3); CALCIUM 8.4 mg/dl (8.4-10.2); TOTAL PROTEIN 6.3 g/dl (6.1-8.1)
[2016-04-03] MEDS: metroNIDAZOLE 500 MG/NS (PMX) 100 ML IVPB SCH ×3 (05:54→21:52)
[2016-04-03 08:00] VITALS: BP 131/80; PULSE 60; RESP 20
[2016-04-03] MEDS: SENNA/DOCUSATE NA (8.6MG/50MG) TAB PO SCH (08:55)
[2016-04-03] MEDS: FAMOTIDINE 20 MG INJ IV SCH ×2 (08:55→20:07)
[2016-04-03] MEDS: CIPROFLOXACIN 200 MG/D5W IVPB 100 ML IVPB SCH ×2 (08:58→20:07)
[2016-04-03] MEDS: ENOXAPARIN 100 MG/ML SYG SC SCH ×2 (09:50→20:26)
--- NOTE | 2016-04-03 09:54 | PN ---
Date/Time of Note Date/Time of Note DATE: 04/03/16 TIME: 09:49 Assessment/Plan Lines/Catheters IV Catheter Type (from [facility] [place]): Peripheral IV Assessment/Plan Chief Complaint/Hosp Course -Superior mesenteric vein thrombosis: It seems the patient has developed a mesenteric vein thrombus that seems to be a bit unusual, given her age. The patient has denied any recent history of alcohol use or a family history of hypercoagulable state. She is on OCP's. I am concerned, given her age, that the patient has developed a thrombosis of her mesenteric vein and would recommend further workup. For now, would recommend holding her OCP's until further hypercoagulable workup has been performed -Continue with anticoagulation Lovenox b.i.d. -Possibly consider keeping NPO for now as abdominal pain worsens with meals -CT venogram demonstrated extensive SMV thrombosis. -Appreciate general surgery evaluation, as the patient may require further intervention if she has further propagation of her thrombosis. From a vascular surgery standpoint, will continue to monitor the patient for now. -Recommend hypercoagulable workup and appreciate hematology evaluation, (as the patient has a history of miscarriages x3 in her first trimester, OCP's), Would like to rule out protein C&S deficiency -Discussed the findings, plan and management with the patient and she understands. -Thank you for allowing us to partake in the care of your patient. Please call with any questions. Problems: Subjective 24 Hr Interval Summary still has abdominal pain, especially with meals Exam/Review of Systems Vital Signs Vitals Vital Signs Date Time Temp Pulse Resp B/P Pulse Ox O2 Delivery O2 Flow Rate FiO2 04/02/16 20:00 99.2 73 20 150/87 99 Room Air Intake and Output 04/02/16 04/02/16 04/03/16 15:00 23:00 07:00 Intake Total 200 ml 2950 ml 1650 ml Balance 200 ml 2950 ml 1650 ml Exam Free Text/Dictation GENERAL: Alert and oriented x3. Some abdominal discomfort. PULMONARY: Clear to auscultation bilaterally. No crackles. CARDIOVASCULAR: S1, S2 present. No murmurs. ABDOMEN: Soft, truncal obesity. Tenderness periumbilical region. Pain scale of 5 to 6 out of 10. No peritonitis. EXTREMITIES: Lower extremity palpable femoral pulses, palpable pedal pulses. Motor and sensory intact. Capillary refill 2 to 3 seconds. No ulcers identified. Results Result Diagram: 04/02/16 0557 04/03/16 0445 IBIS COTTO MD Apr 03, 2016 09:54
--- NOTE | 2016-04-03 11:24 | CONS ---
Date/Time of Note Date/Time of Note DATE: 04/03/16 TIME: 11:15 Assessment/Plan Assessment/Plan Chief Complaint/Hosp Course Impression: 1. Superior mesenteric vein thrombosis: This is likely causing her abdominal pain. 2. Diarrhea: C. diff ordered 2 days ago but not done despite pt having diarrhea. 3. Anemia r/o GIB Recommendation: 1. hematology eval for hypercoagulable state 2. f/u IBD serology to see if it is the cause of her superior mesenteric vein thrombosis 3. f/u occult blood 4. I wrote a nursing communication to please send off stool for c. diff given pt having diarrhea. 5. continue anti-coagulation perr hematology Problems: Consultation Date/Type/Reason Admit Date/Time Apr 01, 2016 at 03:26 Initial Consult Date 04/01/16 Type of Consultation: GI Referring Provider: ALLA PHAN MD 24 HR Interval Summary Free Text/Dictation abdominal pain improved, tolerates po, no n/v, having diarrhea Exam/Review of Systems Vital Signs Vitals Vital Signs Date Time Temp Pulse Resp B/P Pulse Ox O2 Delivery O2 Flow Rate FiO2 04/02/16 20:00 99.2 73 20 150/87 99 Room Air Intake and Output 04/02/16 04/02/16 04/03/16 15:00 23:00 07:00 Intake Total 200 ml 2950 ml 1650 ml Balance 200 ml 2950 ml 1650 ml Exam Constitutional: alert, oriented, well developed Psych: nl mood/affect, no complaints Head: atraumatic, normocephalic Eyes: EOMI, nl conjunctiva, nl lids, nl sclera ENMT: mucosa pink and moist, nl external ears & nose, nl lips & teeth, nl nasal mucosa & septum Neck: non-tender, supple Respiratory: clear to auscultation, normal air movement Cardiovascular: nl pulses, regular rate and rhythm Gastrointestinal: bowel sounds, nl liver, spleen, soft, tender (diffusely wihtout r/g) Neurological: nl mental status, nl speech, nl strength Results Result Diagram: 04/02/16 0557 04/03/16 0445 Results 24 hrs Laboratory Tests Test 04/03/16 04:45 Alanine Aminotransferase (ALT/SGPT) 43 Albumin 3.1 L Albumin/Globulin Ratio 0.96 Alkaline Phosphatase 97 Anion Gap 13 Aspartate Amino Transf (AST/SGOT) 14 L Blood Urea Nitrogen 4 L Calcium Level 8.4 Carbon Dioxide Level 29 Chloride Level 101 Creatinine 0.74 Direct Bilirubin 0.00 Globulin 3.20 Glucose Level 111 Indirect Bilirubin 0.4 Lactate Dehydrogenase 257 L Potassium Level 3.6 Sodium Level 139 Total Bilirubin 0.4 Total Protein 6.3 Medications Medications Current Medications Morphine Sulfate (morphine) 3 mg Q4H PRN IV PAIN LEVEL 6-10 Last administered on 04/03/16 09:46; Admin Dose 3 MG; Start 04/01/16 at 04:00 Ondansetron HCl (Zofran Inj) 4 mg Q6H PRN IV NAUSEA AND/OR VOMITING; Start at 04:00 Famotidine 20 mg 20 mg BID IV Last administered on 04/03/16 08:55; Admin Dose 20 MG; Start 04/01/16 at 09:00 Dextrose/Sodium Chloride 1,000 ml @ 100 mls/hr Q10H IV Last administered on 05:55; Admin Dose 100 MLS/HR; Start 04/01/16 at 08:30 Ciprofloxacin/ Dextrose 100 ml @ 100 mls/hr Q12 IVPB Last administered on 04/03 08:58; Admin Dose 100 MLS/HR; Start 04/01/16 at 12:00 Metronidazole (Flagyl 500 Mg (Pmx)) 100 ml @ 100 mls/hr Q8 IVPB Last administered on 04/03/16 05:54; Admin Dose 100 MLS/HR; Start 04/01/16 at 22:00 Enoxaparin Sodium (Lovenox) 90 mg BID SC Last administered on 04/03/16 09:50; Admin Dose 90 MG; Start 04/02/16 at 09:00; Stop 04/04/16 at 09:00 Apixaban (Eliquis) 5 mg BID PO ; Start 04/04/16 at 21:00 Senna/Docusate Sodium (Senokot-S) 2 tab DAILY PO Last administered on 08:55; Admin Dose 2 TAB; Start 04/02/16 at 15:30 EDWINA PACE MD Apr 03, 2016 11:24
--- NOTE | 2016-04-03 11:38 | PN ---
DATE: The patient is clinically unchanged. She states that her pain scale was about a 5. This morning sh ortly after taking clear liquids, her pain scale went up to about 9. She has no fever. Her abdominal examination remains benign. PLAN: Continue medical management. Repeat CBC is pending. I will follow with you. Further recomm endations will depend on the patient's further workup and clinical course. Dictated By: ALPHONSO FELIPE/NAOMI Conf#: [id number] DID#: [id number]
[2016-04-03 11:39] LABS: BASOPHILS % 0.5 % (0.0-2.0); EOSINOPHILS # 0.1 10^3/ul (0.0-0.5); EOSINOPHILS % 1.1 % (0.0-7.0); HEMOGLOBIN 11.4 g/dl (12.0-16.0); LYMPHOCYTES # 2.4 10^3/ul (0.8-2.9); LYMPHOCYTES % 32.9 % (15.0-51.0); MEAN CORPUSCULAR HEMOGLOBIN 30.7 pg (29.0-33.0); MEAN CORPUSCULAR HGB CONC 33.7 g/dl (32.0-37.0); MEAN CORPUSCULAR VOLUME 91.1 fl (82.0-101.0); MEAN PLATELET VOLUME 9.1 fl (7.4-10.4); MONOCYTE # 0.6 10^3/ul (0.3-0.9); MONOCYTES % 7.8 % (0.0-11.0); NEUTROPHIL # 4.2 10^3/ul (1.6-7.5); NEUTROPHILS % 57.7 % (39.0-77.0); PLATELET COUNT 298 10^3/UL (140-440); RED BLOOD COUNT 3.73 10^6/ul (4.20-5.40); RED CELL DISTRIBUTION WIDTH 13.1 % (11.5-14.5); UNCORRECTED WBC 7.3 10^3/ul (4.8-10.8); WHITE BLOOD COUNT 7.3 10^3/ul (4.8-10.8)
[2016-04-03 11:48] LABS: CONDITION 1
--- NOTE | 2016-04-03 12:36 | PN ---
Date/Time of Note Date/Time of Note DATE: 04/03/16 TIME: 12:29 Assessment/Plan VTE Prophylaxis VTE Prophylaxis Intervention: LMWH Lines/Catheters IV Catheter Type (from [facility]): Peripheral IV Assessment/Plan Chief Complaint/Hosp Course Hospitalist coverage- S: 35yr F w abd pain/n/v for about 10 days. Had some chicken tacos. Significant other had tacos. No hematemesis or hematochezia. Subjective fever and chills. Fatigue and loss of appetite. Was able to go to work. On the seventh, pt went to ER. Hydrated and cont supportive care. Was not given antibiotics. Symptoms continued along w diarrhea. Pepto-Bismol was taken and this may have accounted for her dark stools. No previous similar problems. No hematuria. Only social alcohol. Treatment included Tylenol and rare Motrin. CT concerning for multicentric stranding. 04/02: Less pain. No nausea vomiting fever. Appreciate small business consultant assistance. 04/03: Had 1 or 2 bouts of loose BM. No melena hematochezia. No fever dyspnea. Pain increased after clear liquid diet today and last night. O:vss PE No pallor Reg, no m/r/g ctab Bs+ mild tender. No r/r/g, flank ecchymosis. No edema A/P 1. Colitis -ischemic/vascular; doubt infectious; stable Rx SMV clot. No FH stroke/ vasculitis. Ro IBD. Father had heart valve issues. Aunt w colon ca. Ho 3 miscarriages. She uses [employer]. Travel to [place] & [place] in Feb. [employer] for now; will switch to [employer] tuesday. Dc antibiotics if ok w GI. repeat cta/ mr tuesday? 2. Anemia- chencho 3. Ho C-sec but no bleeding tendencies. 4. SMV thrombus w localized ischemia. Does not require surgery at this time. Hypercoagulable workup. Ro DVT. Problems: Exam/Review of Systems Vital Signs Vitals Vital Signs Date Time Temp Pulse Resp B/P Pulse Ox O2 Delivery O2 Flow Rate FiO2 04/02/16 20:00 99.2 73 20 150/87 99 Room Air Intake and Output 04/02/16 04/02/16 04/03/16 15:00 23:00 07:00 Intake Total 200 ml 2950 ml 1650 ml Balance 200 ml 2950 ml 1650 ml Results Result Diagram: 04/03/16 0445 04/03/16 0445 Results 24 hrs Laboratory Tests Test 04/03/16 04:45 Alanine Aminotransferase (ALT/SGPT) 43 Albumin 3.1 L Albumin/Globulin Ratio 0.96 Alkaline Phosphatase 97 Anion Gap 13 Aspartate Amino Transf (AST/SGOT) 14 L Basophils # 0.0 Basophils % 0.5 Blood Urea Nitrogen 4 L Calcium Level 8.4 Carbon Dioxide Level 29 Chloride Level 101 Creatinine 0.74 Direct Bilirubin 0.00 Eosinophils # 0.1 Eosinophils % 1.1 Globulin 3.20 Glucose Level 111 Hematocrit 34.0 L Hemoglobin 11.4 L Indirect Bilirubin 0.4 Lactate Dehydrogenase 257 L Lymphocytes # 2.4 Lymphocytes % 32.9 Mean Corpuscular Hemoglobin 30.7 Mean Corpuscular Hemoglobin Concent 33.7 Mean Corpuscular Volume 91.1 Mean Platelet Volume 9.1 Monocytes # 0.6 Monocytes % 7.8 Neutrophils # 4.2 Neutrophils % 57.7 Nucleated Red Blood Cells # 0.0 Nucleated Red Blood Cells % 0.0 Platelet Count 298 Potassium Level 3.6 Red Blood Count 3.73 L Red Cell Distribution Width 13.1 Sodium Level 139 Total Bilirubin 0.4 Total Protein 6.3 White Blood Count 7.3 Medications Medications Current Medications Morphine Sulfate (morphine) 3 mg Q4H PRN IV PAIN LEVEL 6-10 Last administered on 04/03/16 09:46; Admin Dose 3 MG; Start 04/01/16 at 04:00 Ondansetron HCl (Zofran Inj) 4 mg Q6H PRN IV NAUSEA AND/OR VOMITING; Start at 04:00 Famotidine 20 mg 20 mg BID IV Last administered on 04/03/16 08:55; Admin Dose 20 MG; Start 04/01/16 at 09:00 Dextrose/Sodium Chloride 1,000 ml @ 100 mls/hr Q10H IV Last administered on 05:55; Admin Dose 100 MLS/HR; Start 04/01/16 at 08:30 Ciprofloxacin/ Dextrose 100 ml @ 100 mls/hr Q12 IVPB Last administered on 04/03 08:58; Admin Dose 100 MLS/HR; Start 04/01/16 at 12:00 Metronidazole (Flagyl 500 Mg (Pmx)) 100 ml @ 100 mls/hr Q8 IVPB Last administered on 04/03/16 05:54; Admin Dose 100 MLS/HR; Start 04/01/16 at 22:00 Enoxaparin Sodium (Lovenox) 90 mg BID SC Last administered on 04/03/16 09:50; Admin Dose 90 MG; Start 04/02/16 at 09:00; Stop 04/04/16 at 09:00 Apixaban (Eliquis) 5 mg BID PO ; Start 04/04/16 at 21:00 Senna/Docusate Sodium (Senokot-S) 2 tab DAILY PO Last administered on 08:55; Admin Dose 2 TAB; Start 04/02/16 at 15:30 ALLA PHAN MD Apr 03, 2016 12:36
[2016-04-03 14:17] LABS: MYELOPEROXIDASE ANTIBODY <1.0 AI; PROTEINASE-3 ANTIBODY <1.0 AI
[2016-04-03 15:05] LABS: ANA SCREEN NEGATIVE (NEGATIVE)
[2016-04-03 20:30] VITALS: BP 152/87; PULSE 67; RESP 20
[2016-04-03] MEDS ORDERED: HYDROCORTISONE 1% 28 GM CR TOP ONE (21:30)
--- NOTE | 2016-04-03 21:33 | CONS ---
Date/Time of Note Date/Time of Note DATE: 04/03/16 TIME: 21:29 Assessment/Plan Assessment/Plan Chief Complaint/Hosp Course ASSESSMENT AND PLAN: Hypercoagulable state with acute Superior mesenteric vein thrombosis: note that pt is on control- d/w pt - dc unusual event, given her age. The patient has denied any recent history of alcohol use, travel or a family history of hypercoagulable state. agree with anticoagulation, post Lovenox b.i.d at therapeutic dose, now on ELIQUIS complete hypercoagulable workup , incl tumor markers SURG and vascular surg f-up LEUKOCYTOSIS- WITH N DIFF looks reactive monitor IMPROVED ANEMIA- N CYTIC WITH N RDW C/W ACD COMPLETE W-UP MONITOR BLOOD COUNT CLOSELY COUNT STABLE history of miscarriages x3 in her first trimester. JASSI- NEG lupus panel- P Discussed the findings, plan and management with the patient and she understands. Thank you for allowing us to partake in the care of your patient. Please call with any questions. d/w Dr ALLA PHAN Problems: Consultation Date/Type/Reason Admit Date/Time Apr 01, 2016 at 03:26 Initial Consult Date 04/01/16 Type of Consultation: [facility] Referring Provider: ALLA PHAN MD 24 HR Interval Summary Free Text/Dictation all noted d/w dr Serna on eliquis The patient is clinically unchanged. She states that her pain scale was about a 5. This morning shortly after taking clear liquids, her pain scale went up to about 9. Exam/Review of Systems Vital Signs Vitals Vital Signs Date Time Temp Pulse Resp B/P Pulse Ox O2 Delivery O2 Flow Rate FiO2 04/03/16 08:00 98.5 60 20 131/80 97 Room Air Intake and Output 04/02/16 04/02/16 04/03/16 15:00 23:00 07:00 Intake Total 200 ml 2950 ml 1650 ml Balance 200 ml 2950 ml 1650 ml Exam GENERAL: Alert and oriented x3. Some abdominal discomfort. HEENT: Normocephalic, atraumatic. PERRLA, EOMI. Mucosa moist. NECK: Supple. No carotid bruit. PULMONARY: Clear to auscultation bilaterally. No crackles. CARDIOVASCULAR: S1, S2 present. No murmurs. ABDOMEN: Soft, truncal obesity. Tenderness in the periumbilical region, + abd distention. Pain scale of 5 to 6 out of 10. No peritonitis. EXTREMITIES: Lower extremity palpable femoral pulses, palpable pedal pulses. Motor and sensory intact. Capillary refill 2 to 3 seconds. No ulcers identified. Results Result Diagram: 04/03/165 04/03/165 Results 24 hrs Laboratory Tests Test 04/03/16 04:45 Alanine Aminotransferase (ALT/SGPT) 43 Albumin 3.1 L Albumin/Globulin Ratio 0.96 Alkaline Phosphatase 97 Anion Gap 13 Aspartate Amino Transf (AST/SGOT) 14 L Basophils # 0.0 Basophils % 0.5 Blood Urea Nitrogen 4 L Calcium Level 8.4 Carbon Dioxide Level 29 Chloride Level 101 Creatinine 0.74 Direct Bilirubin 0.00 Eosinophils # 0.1 Eosinophils % 1.1 Globulin 3.20 Glucose Level 111 Hematocrit 34.0 L Hemoglobin 11.4 L Indirect Bilirubin 0.4 Lactate Dehydrogenase 257 L Lymphocytes # 2.4 Lymphocytes % 32.9 Mean Corpuscular Hemoglobin 30.7 Mean Corpuscular Hemoglobin Concent 33.7 Mean Corpuscular Volume 91.1 Mean Platelet Volume 9.1 Monocytes # 0.6 Monocytes % 7.8 Neutrophils # 4.2 Neutrophils % 57.7 Nucleated Red Blood Cells # 0.0 Nucleated Red Blood Cells % 0.0 Platelet Count 298 Potassium Level 3.6 Red Blood Count 3.73 L Red Cell Distribution Width 13.1 Sodium Level 139 Total Bilirubin 0.4 Total Protein 6.3 White Blood Count 7.3 Medications Medications Current Medications Morphine Sulfate (morphine) 3 mg Q4H PRN IV PAIN LEVEL 6-10 Last administered on 04/03/16 18:20; Admin Dose 3 MG; Start 04/01/16 at 04:00 Ondansetron HCl (Zofran Inj) 4 mg Q6H PRN IV NAUSEA AND/OR VOMITING; Start at 04:00 Famotidine 20 mg 20 mg BID IV Last administered on 04/03/16 20:07; Admin Dose 20 MG; Start 04/01/16 at 09:00 Dextrose/Sodium Chloride 1,000 ml @ 100 mls/hr Q10H IV Last administered on 20:06; Admin Dose 100 MLS/HR; Start 04/01/16 at 08:30 Ciprofloxacin/ Dextrose 100 ml @ 100 mls/hr Q12 IVPB Last administered on 04/03 20:07; Admin Dose 100 MLS/HR; Start 04/01/16 at 12:00 Metronidazole (Flagyl 500 Mg (Pmx)) 100 ml @ 100 mls/hr Q8 IVPB Last administered on 04/03/16 14:07; Admin Dose 100 MLS/HR; Start 04/01/16 at 22:00 Enoxaparin Sodium (Lovenox) 90 mg BID SC Last administered on 04/03/16 20:26; Admin Dose 90 MG; Start 04/02/16 at 09:00; Stop 04/04/16 at 09:00 Apixaban (Eliquis) 5 mg BID PO ; Start 04/04/16 at 21:00 Senna/Docusate Sodium (Senokot-S) 2 tab DAILY PO Last administered on 08:55; Admin Dose 2 TAB; Start 04/02/16 at 15:30 Ketorolac Tromethamine (Toradol) 15 mg Q6H PRN IV PAIN; Start 04/03/16 at 21:30 ; Stop 04/06/16 at 21:29; Status UNV Acetaminophen/ Hydrocodone Bitart ([place] (10/325)) 1 tab Q6H PRN PO PAIN; Start 04/03/16 at 21:30; Status UNV Hydrocortisone (Hydrocortisone 1% Cr) 1 applic ONCE ONCE TOP ; Start 04/03/16 at 21:30; Stop 04/03/16 at 21:31; Status UNV ALY HAMILTON MD Apr 03, 2016 21:33
[2016-04-03] MEDS: KETOROLAC 15 MG INJ IV PRN (21:52)
[2016-04-04] MEDS: metroNIDAZOLE 500 MG/NS (PMX) 100 ML IVPB SCH ×3 (05:22→21:44)
[2016-04-04] MEDS: KETOROLAC 15 MG INJ IV PRN ×2 (05:23→21:45)
[2016-04-04 06:14] LABS: ALBUMIN 3.1 g/dl (3.3-4.9); POTASSIUM 3.5 mmol/L (3.5-5.1)
[2016-04-04 06:16] LABS: CREATININE 0.69 mg/dl (0.44-1.00)
[2016-04-04 06:17] LABS: BILIRUBIN,INDIRECT 0.1 mg/dl (0-1.1); BILIRUBIN,TOTAL 0.1 mg/dl (0.2-1.3); CALCIUM 8.6 mg/dl (8.4-10.2); PHOSPHORUS 3.3 mg/dl (2.5-4.9); TOTAL PROTEIN 6.2 g/dl (6.1-8.1)
[2016-04-04 06:18] LABS: MAGNESIUM 2.1 mg/dl (1.7-2.5)
[2016-04-04] MEDS: DEXTROSE 5%-0.45% NACL 1,000 ML IV SCH (06:30)
[2016-04-04 06:46] LABS: BASOPHILS % 0.6 % (0.0-2.0); EOSINOPHILS # 0.1 10^3/ul (0.0-0.5); EOSINOPHILS % 2.2 % (0.0-7.0); HEMATOCRIT 33.5 % (37.0-47.0); HEMOGLOBIN 11.6 g/dl (12.0-16.0); LYMPHOCYTES # 2.3 10^3/ul (0.8-2.9); LYMPHOCYTES % 37.6 % (15.0-51.0); MEAN CORPUSCULAR HEMOGLOBIN 31.2 pg (29.0-33.0); MEAN CORPUSCULAR HGB CONC 34.5 g/dl (32.0-37.0); MEAN CORPUSCULAR VOLUME 90.4 fl (82.0-101.0); MEAN PLATELET VOLUME 8.9 fl (7.4-10.4); MONOCYTE # 0.6 10^3/ul (0.3-0.9); MONOCYTES % 10.5 % (0.0-11.0); NEUTROPHILS % 49.1 % (39.0-77.0); PLATELET COUNT 322 10^3/UL (140-440); RED CELL DISTRIBUTION WIDTH 12.7 % (11.5-14.5)
[2016-04-04 07:11] LABS: CONDITION 1
[2016-04-04 07:27] VITALS: BP 125/66; RESP 16
[2016-04-04] MEDS: FAMOTIDINE 20 MG INJ IV SCH (08:26)
[2016-04-04] MEDS: CIPROFLOXACIN 200 MG/D5W IVPB 100 ML IVPB SCH ×2 (08:27→20:23)
[2016-04-04] MEDS: SENNA/DOCUSATE NA (8.6MG/50MG) TAB PO SCH (08:27)
[2016-04-04] MEDS: ENOXAPARIN 100 MG/ML SYG SC SCH (08:30)
--- NOTE | 2016-04-04 10:06 | PN ---
Date/Time of Note Date/Time of Note DATE: 04/04/16 TIME: 10:04 Assessment/Plan Lines/Catheters IV [facility] (from [facility]): Peripheral IV Assessment/Plan Chief Complaint/Hosp Course -Superior mesenteric vein thrombosis: It seems the patient has developed a mesenteric vein thrombus that seems to be a bit unusual, given her age. The patient has denied any recent history of alcohol use or a family history of hypercoagulable state. She is on OCP's. I am concerned, given her age, that the patient has developed a thrombosis of her mesenteric vein and would recommend further workup. For now, would recommend holding her OCP's until further hypercoagulable workup has been performed -Continue with anticoagulation Lovenox b.i.d. and transition to PO -Possibly consider keeping NPO for now as abdominal pain worsens with meals -CT venogram demonstrated extensive SMV thrombosis. -Appreciate general surgery evaluation, as the patient may require further intervention if she has further propagation of her thrombosis. From a vascular surgery standpoint no further intervention, will continue to monitor the patient. -Recommend hypercoagulable workup and appreciate hematology evaluation, (as the patient has a history of miscarriages x3 in her first trimester, OCP's), Would like to rule out protein C&S deficiency -Discussed the findings, plan and management with the patient and she understands. -Thank you for allowing us to partake in the care of your patient. Please call with any questions. Problems: Subjective 24 Hr Interval Summary no new vascular events overnight Exam/Review of Systems Vital Signs Vitals Vital Signs Date Time Temp Pulse Resp B/P Pulse Ox O2 Delivery O2 Flow Rate FiO2 04/04/16 07:27 98.6 51 16 125/66 98 04/03/16 20:30 Room Air Intake and Output 04/03/16 04/03/16 04/04/16 15:00 23:00 07:00 Intake Total 300 ml 1000 ml Balance 300 ml 1000 ml Exam Free Text/Dictation GENERAL: Alert and oriented x3. Some abdominal discomfort. PULMONARY: Clear to auscultation bilaterally. No crackles. CARDIOVASCULAR: S1, S2 present. No murmurs. ABDOMEN: Soft, truncal obesity. Tenderness periumbilical region. No peritonitis. EXTREMITIES: Lower extremity palpable femoral pulses, palpable pedal pulses. Motor and sensory intact. Capillary refill 2 to 3 seconds. No ulcers identified. Results Result Diagram: 04/04/16 0453 04/04/16 0453 IBIS COTTO MD Apr 04, 2016 10:06
--- NOTE | 2016-04-04 10:51 | PN ---
Date/Time of Note Date/Time of Note DATE: 04/04/16 TIME: 10:48 Assessment/Plan VTE Prophylaxis VTE Prophylaxis Intervention: LMWH Lines/Catheters IV Catheter Type (from [facility]): Peripheral IV Assessment/Plan Chief Complaint/Hosp Course Hospitalist coverage- S: 35yr F w abd pain/n/v for about 10 days. Had some chicken tacos. Significant other had tacos. No hematemesis or hematochezia. Subjective fever and chills. Fatigue and loss of appetite. Was able to go to work. On the seventh, pt went to ER. Hydrated and cont supportive care. Was not given antibiotics. Symptoms continued along w diarrhea. Pepto-Bismol was taken and this may have accounted for her dark stools. No previous similar problems. No hematuria. Only social alcohol. Treatment included Tylenol and rare Motrin. CT concerning for multicentric stranding. 04/02: Less pain. No nausea vomiting fever. Appreciate securities consultant assistance. 04/03: Had 1 or 2 bouts of loose BM. No melena hematochezia. No fever dyspnea. Pain increased after clear liquid diet today and last night. 04/04: Less diarrhea. Tolerating dinner and breakfast. No toxicity. DC NuvaRing? O:vss PE No pallor Reg, no m/r/g ctab Bs+ mild tender-possibly a little less than yesterday. No r/r/g, flank ecchymosis. No edema. A/P 1. Colitis -ischemic/vascular; doubt infectious; stable Rx SMV clot. No FH stroke/ vasculitis. Ro IBD. Father had heart valve issues. Aunt w colon ca. Ho 3 miscarriages. She uses NuvaRing. Travel to [place] & [place] in Feb. sp [employer]; will switch to Eliquis. DC NuvaRing? Dc antibiotics if ok w GI. repeat cta/mr tuesday? 2. Anemia- ACD 3. Ho C-sec but no bleeding tendencies. 4. SMV thrombus w localized ischemia. Does not require surgery at this time. Hypercoagulable workup. no DVT. Anticipate discharge home Tuesday with follow- up with hematology and GI. No PCP. Will need case management is to see if Eliquis is covered. Problems: Exam/Review of Systems Vital Signs Vitals Vital Signs Date Time Temp Pulse Resp B/P Pulse Ox O2 Delivery O2 Flow Rate FiO2 04/04/16 07:27 98.6 51 16 125/66 98 04/03/16 20:30 Room Air Intake and Output 04/03/16 04/03/16 04/04/16 15:00 23:00 07:00 Intake Total 300 ml 1000 ml Balance 300 ml 1000 ml Results Result Diagram: 04/04/16 0453 04/04/16 0453 Results 24 hrs Laboratory Tests Test 04/04/16 04:53 Alanine Aminotransferase (ALT/SGPT) 37 Albumin 3.1 L Albumin/Globulin Ratio 1.00 Alkaline Phosphatase 90 Anion Gap 13 Aspartate Amino Transf (AST/SGOT) 22 Basophils # 0.0 Basophils % 0.6 Blood Urea Nitrogen 4 L Calcium Level 8.6 Carbon Dioxide Level 29 Chloride Level 102 Creatinine 0.69 Direct Bilirubin 0.00 Eosinophils # 0.1 Eosinophils % 2.2 Globulin 3.10 Glucose Level 109 Hematocrit 33.5 L Hemoglobin 11.6 L Indirect Bilirubin 0.1 Lymphocytes # 2.3 Lymphocytes % 37.6 Magnesium Level 2.1 Mean Corpuscular Hemoglobin 31.2 Mean Corpuscular Hemoglobin Concent 34.5 Mean Corpuscular Volume 90.4 Mean Platelet Volume 8.9 Monocytes # 0.6 Monocytes % 10.5 Neutrophils # 3.0 Neutrophils % 49.1 Nucleated Red Blood Cells # 0.0 Nucleated Red Blood Cells % 0.0 Phosphorus Level 3.3 Platelet Count 322 Potassium Level 3.5 Red Blood Count 3.70 L Red Cell Distribution Width 12.7 Sodium Level 140 Total Bilirubin 0.1 L Total Protein 6.2 White Blood Count 6.0 Medications Medications Current Medications Morphine Sulfate (morphine) 3 mg Q4H PRN IV PAIN LEVEL 6-10 Last administered on 04/03/16 18:20; Admin Dose 3 MG; Start 04/01/16 at 04:00 Ondansetron HCl (Zofran Inj) 4 mg Q6H PRN IV NAUSEA AND/OR VOMITING; Start at 04:00 Famotidine 20 mg 20 mg BID IV Last administered on 04/04/16 08:26; Admin Dose 20 MG; Start 04/01/16 at 09:00 Dextrose/Sodium Chloride 1,000 ml @ 100 mls/hr Q10H IV Last administered on 20:06; Admin Dose 100 MLS/HR; Start 04/01/16 at 08:30 Ciprofloxacin/ Dextrose 100 ml @ 100 mls/hr Q12 IVPB Last administered on 04/04 08:27; Admin Dose 100 MLS/HR; Start 04/01/16 at 12:00 Metronidazole (Flagyl 500 Mg (Pmx)) 100 ml @ 100 mls/hr Q8 IVPB Last administered on 04/04/16 05:22; Admin Dose 100 MLS/HR; Start 04/01/16 at 22:00 Apixaban (Eliquis) 5 mg BID PO ; Start 04/04/16 at 21:00 Senna/Docusate Sodium (Senokot-S) 2 tab DAILY PO Last administered on 08:27; Admin Dose 2 TAB; Start 04/02/16 at 15:30 Ketorolac Tromethamine (Toradol) 15 mg Q6H PRN IV PAIN Last administered on 05:23; Admin Dose 15 MG; Start 04/03/16 at 21:30; Stop 04/06/16 at 21:29 Acetaminophen/ Hydrocodone Bitart ([place] (10/325)) 1 tab Q6H PRN PO PAIN; Start 04/03/16 at 21:30 ALLA PHAN MD Apr 04, 2016 10:50
[2016-04-04] MEDS: SOD CHLORIDE 0.9% 1,000 ML IV SCH (11:15)
[2016-04-04] MEDS: HYDROCODONE/APAP (10/325) TAB PO PRN ×2 (12:03→19:17)
--- NOTE | 2016-04-04 12:52 | CONS ---
Date/Time of Note Date/Time of Note DATE: 04/04/16 TIME: 12:50 Assessment/Plan Assessment/Plan Chief Complaint/Hosp Course ASSESSMENT AND PLAN: Hypercoagulable state with acute Superior mesenteric vein thrombosis: note that pt is on control- d/w pt - dc unusual event, given her age. The patient has denied any recent history of alcohol use, travel or a family history of hypercoagulable state. agree with anticoagulation, post Lovenox b.i.d at therapeutic dose, now on ELIQUIS hypercoagulable workup , incl tumor markers- P SURG and vascular surg f-up LEUKOCYTOSIS- WITH N DIFF looks reactive monitor IMPROVED ANEMIA- N CYTIC WITH N RDW C/W ACD COMPLETE W-UP MONITOR BLOOD COUNT CLOSELY COUNT STABLE history of miscarriages x3 in her first trimester. JASSI- NEG lupus panel- P Discussed the findings, plan and management with the patient and she understands. Thank you for allowing us to partake in the care of your patient. Please call with any questions. d/w Dr ALLA PHAN Problems: Consultation Date/Type/Reason Admit Date/Time Apr 01, 2016 at 03:26 Initial Consult Date 04/01/16 Type of Consultation: [facility] Referring Provider: ALLA PHAN MD 24 HR Interval Summary Free Text/Dictation ALL NOTED FELLING SL BETTER TODAY Exam/Review of Systems Vital Signs Vitals Vital Signs Date Time Temp Pulse Resp B/P Pulse Ox O2 Delivery O2 Flow Rate FiO2 04/04/16 07:27 98.6 51 16 125/66 98 04/03/16 20:30 Room Air Intake and Output 04/03/16 04/03/16 04/04/16 15:00 23:00 07:00 Intake Total 300 ml 1000 ml Balance 300 ml 1000 ml Exam GENERAL: Alert and oriented x3. Some abdominal discomfort. HEENT: Normocephalic, atraumatic. PERRLA, EOMI. Mucosa moist. NECK: Supple. No carotid bruit. PULMONARY: Clear to auscultation bilaterally. No crackles. CARDIOVASCULAR: S1, S2 present. No murmurs. ABDOMEN: Soft, truncal obesity. DECREASED Tenderness in the periumbilical region, LESS abd distention. Pain scale of 2-3 out of 10. No peritonitis. EXTREMITIES: Lower extremity palpable femoral pulses, palpable pedal pulses. Motor and sensory intact. Capillary refill 2 to 3 seconds. No ulcers identified. Results Result Diagram: 04/04/16 04504/04/16 0453 Results 24 hrs Laboratory Tests Test 04/04/16 04:53 Alanine Aminotransferase (ALT/SGPT) 37 Albumin 3.1 L Albumin/Globulin Ratio 1.00 Alkaline Phosphatase 90 Anion Gap 13 Aspartate Amino Transf (AST/SGOT) 22 Basophils # 0.0 Basophils % 0.6 Blood Urea Nitrogen 4 L Calcium Level 8.6 Carbon Dioxide Level 29 Chloride Level 102 Creatinine 0.69 Direct Bilirubin 0.00 Eosinophils # 0.1 Eosinophils % 2.2 Globulin 3.10 Glucose Level 109 Hematocrit 33.5 L Hemoglobin 11.6 L Indirect Bilirubin 0.1 Lymphocytes # 2.3 Lymphocytes % 37.6 Magnesium Level 2.1 Mean Corpuscular Hemoglobin 31.2 Mean Corpuscular Hemoglobin Concent 34.5 Mean Corpuscular Volume 90.4 Mean Platelet Volume 8.9 Monocytes # 0.6 Monocytes % 10.5 Neutrophils # 3.0 Neutrophils % 49.1 Nucleated Red Blood Cells # 0.0 Nucleated Red Blood Cells % 0.0 Phosphorus Level 3.3 Platelet Count 322 Potassium Level 3.5 Red Blood Count 3.70 L Red Cell Distribution Width 12.7 Sodium Level 140 Total Bilirubin 0.1 L Total Protein 6.2 White Blood Count 6.0 Medications Medications Current Medications Morphine Sulfate (morphine) 3 mg Q4H PRN IV PAIN LEVEL 6-10 Last administered on 04/03/16 18:20; Admin Dose 3 MG; Start 04/01/16 at 04:00 Ondansetron HCl 4 mg 4 mg Q6H PRN IV NAUSEA AND/OR VOMITING; Start 04/01/16 at 04:00 Ciprofloxacin/ Dextrose 100 ml @ 100 mls/hr Q12 IVPB Last administered on 04/04 08:27; Admin Dose 100 MLS/HR; Start 04/01/16 at 12:00 Metronidazole (Flagyl 500 Mg (Pmx)) 100 ml @ 100 mls/hr Q8 IVPB Last administered on 04/04/16 05:22; Admin Dose 100 MLS/HR; Start 04/01/16 at 22:00 Apixaban (Eliquis) 5 mg BID PO ; Start 04/04/16 at 21:00 Senna/Docusate Sodium (Senokot-S) 2 tab DAILY PO Last administered on 08:27; Admin Dose 2 TAB; Start 04/02/16 at 15:30 Ketorolac Tromethamine (Toradol) 15 mg Q6H PRN IV PAIN Last administered on 05:23; Admin Dose 15 MG; Start 04/03/16 at 21:30; Stop 04/06/16 at 21:29 Acetaminophen/ Hydrocodone Bitart ([place] (10/325)) 1 tab Q6H PRN PO PAIN Last administered on 04/04/16 12:03; Admin Dose 1 TAB; Start 04/03/16 at 21:30 Famotidine 20 mg 20 mg DAILY IV ; Start 04/05/16 at 09:00 Sodium Chloride (NS) 1,000 ml @ 50 mls/hr Q20H IV Last administered on 11:15; Admin Dose 50 MLS/HR; Start 04/04/16 at 11:00 ALY HAMILTON MD Apr 04, 2016 12:52
--- NOTE | 2016-04-04 13:32 | PN ---
DATE: 04/04/2016 SUBJECTIVE: The patient is symptomatically improved. Her pain scale remains around 5. However, la night, she states it was 10. This morning, she was able to tolerate clear liquids without abdomi nal pain. She definitely feels improved today, much more so than yesterday. Her abdominal examinat ion remains benign, and she is afebrile with a normal white count. PLAN: Continue medical management. I will follow with you. Dictated By: ALPHONSO FELIPE/NAOMI Conf#: [id number] DID#: [id number]
--- NOTE | 2016-04-04 15:08 | CONS ---
Date/Time of Note Date/Time of Note DATE: 04/04/16 TIME: 15:05 Assessment/Plan Assessment/Plan Chief Complaint/Hosp Course Impression: 1. Superior mesenteric vein thrombosis: This is likely causing her abdominal pain. 2. Diarrhea: C. diff ordered 2 days ago but not done despite pt having diarrhea. 3. Anemia r/o GIB Recommendation: 1. hematology eval for hypercoagulable state 2. f/u IBD serology to see if it is the cause of her superior mesenteric vein thrombosis 3. f/u occult blood 4. f/u c. diff given pt having diarrhea. 5. continue anti-coagulation per hematology 6. f/u surgery for superior mesenteric vein thrombosis Problems: Consultation Date/Type/Reason Admit Date/Time Apr 01, 2016 at 03:26 Initial Consult Date 04/01/16 Type of Consultation: GI Referring Provider: ALLA PHAN MD 24 HR Interval Summary Free Text/Dictation tolerating clears, no nausea or vomiting Constitutional: improved Exam/Review of Systems Vital Signs Vitals Vital Signs Date Time Temp Pulse Resp B/P Pulse Ox O2 Delivery O2 Flow Rate FiO2 04/04/16 07:27 98.6 51 16 125/66 98 04/03/16 20:30 Room Air Intake and Output 04/03/16 04/03/16 04/04/16 15:00 23:00 07:00 Intake Total 300 ml 1000 ml Balance 300 ml 1000 ml Exam Constitutional: alert, oriented, well developed Psych: nl mood/affect, no complaints Head: atraumatic, normocephalic Eyes: EOMI, nl conjunctiva, nl lids, nl sclera ENMT: mucosa pink and moist, nl external ears & nose, nl lips & teeth, nl nasal mucosa & septum Neck: non-tender, supple Respiratory: clear to auscultation, normal air movement Cardiovascular: nl pulses, regular rate and rhythm Gastrointestinal: bowel sounds (hypoactive), non-tender, soft Results Result Diagram: 04/04/163 04/04/16 0453 Results 24 hrs Laboratory Tests Test 04/04/16 04:53 Alanine Aminotransferase (ALT/SGPT) 37 Albumin 3.1 L Albumin/Globulin Ratio 1.00 Alkaline Phosphatase 90 Anion Gap 13 Aspartate Amino Transf (AST/SGOT) 22 Basophils # 0.0 Basophils % 0.6 Blood Urea Nitrogen 4 L Calcium Level 8.6 Carbon Dioxide Level 29 Chloride Level 102 Creatinine 0.69 Direct Bilirubin 0.00 Eosinophils # 0.1 Eosinophils % 2.2 Globulin 3.10 Glucose Level 109 Hematocrit 33.5 L Hemoglobin 11.6 L Indirect Bilirubin 0.1 Lymphocytes # 2.3 Lymphocytes % 37.6 Magnesium Level 2.1 Mean Corpuscular Hemoglobin 31.2 Mean Corpuscular Hemoglobin Concent 34.5 Mean Corpuscular Volume 90.4 Mean Platelet Volume 8.9 Monocytes # 0.6 Monocytes % 10.5 Neutrophils # 3.0 Neutrophils % 49.1 Nucleated Red Blood Cells # 0.0 Nucleated Red Blood Cells % 0.0 Phosphorus Level 3.3 Platelet Count 322 Potassium Level 3.5 Red Blood Count 3.70 L Red Cell Distribution Width 12.7 Sodium Level 140 Total Bilirubin 0.1 L Total Protein 6.2 White Blood Count 6.0 Medications Medications Current Medications Morphine Sulfate (morphine) 3 mg Q4H PRN IV PAIN LEVEL 6-10 Last administered on 04/03/16 18:20; Admin Dose 3 MG; Start 04/01/16 at 04:00 Ondansetron HCl 4 mg 4 mg Q6H PRN IV NAUSEA AND/OR VOMITING; Start 04/01/16 at 04:00 Ciprofloxacin/ Dextrose 100 ml @ 100 mls/hr Q12 IVPB Last administered on 04/04 08:27; Admin Dose 100 MLS/HR; Start 04/01/16 at 12:00 Metronidazole (Flagyl 500 Mg (Pmx)) 100 ml @ 100 mls/hr Q8 IVPB Last administered on 04/04/16 14:47; Admin Dose 100 MLS/HR; Start 04/01/16 at 22:00 Apixaban (Eliquis) 5 mg BID PO ; Start 04/04/16 at 21:00 Senna/Docusate Sodium (Senokot-S) 2 tab DAILY PO Last administered on 08:27; Admin Dose 2 TAB; Start 04/02/16 at 15:30 Ketorolac Tromethamine (Toradol) 15 mg Q6H PRN IV PAIN Last administered on 05:23; Admin Dose 15 MG; Start 04/03/16 at 21:30; Stop 04/06/16 at 21:29 Acetaminophen/ Hydrocodone Bitart ([place] ()) 1 tab Q6H PRN PO PAIN Last administered on 04/04/16 12:03; Admin Dose 1 TAB; Start 04/03/16 at 21:30 Famotidine 20 mg 20 mg DAILY IV ; Start 04/05/16 at 09:00 Sodium Chloride (NS) 1,000 ml @ 50 mls/hr Q20H IV Last administered on 11:15; Admin Dose 50 MLS/HR; Start 04/04/16 at 11:00 EDWINA PACE MD Apr 04, 2016 15:08
[2016-04-04 20:00] VITALS: BP 133/86; PULSE 58; RESP 18
[2016-04-04] MEDS: APIXABAN 5 MG TABLET PO SCH (20:23)
[2016-04-05] MEDS: KETOROLAC 15 MG INJ IV PRN ×2 (04:12→14:57)
[2016-04-05] MEDS: metroNIDAZOLE 500 MG/NS (PMX) 100 ML IVPB SCH ×3 (05:45→22:19)
[2016-04-05] MEDS: SOD CHLORIDE 0.9% 1,000 ML IV SCH (05:47)
--- NOTE | 2016-04-05 05:59 | CONS ---
Date/Time of Note Date/Time of Note DATE: 04/05/16 TIME: 05:55 Assessment/Plan Assessment/Plan Chief Complaint/Hosp Course Impression: 1. Superior mesenteric vein thrombosis: This is likely causing her abdominal pain. 2. Diarrhea: C. diff negative on 04-03-16. Improved. 3. Anemia r/o GIB. Still waiting for occult blood result but h/h stable. Recommendation: 1. hematology eval for hypercoagulable state 2. f/u IBD serology to see if it is the cause of her superior mesenteric vein thrombosis 3. f/u occult blood 4. advance diet per surgery 5. continue anti-coagulation per hematology 6. f/u surgery for superior mesenteric vein thrombosis Problems: Consultation Date/Type/Reason Admit Date/Time Apr 01, 2016 at 03:26 Initial Consult Date 04/01/16 Type of Consultation: GI Referring Provider: ALLA PHAN MD 24 HR Interval Summary Free Text/Dictation tolerating clears, no n/v, resting peacefully Exam/Review of Systems Vital Signs Vitals Vital Signs Date Time Temp Pulse Resp B/P Pulse Ox O2 Delivery O2 Flow Rate FiO2 04/04/16 20:00 98.4 58 18 133/86 98 Room Air Intake and Output 04/04/16 04/04/16 04/05/16 14:59 22:59 06:59 Intake Total 1100 ml 1530 ml 100 ml Balance 1100 ml 1530 ml 100 ml Exam Head: atraumatic, normocephalic Eyes: nl conjunctiva, nl lids, nl sclera ENMT: mucosa pink and moist, nl external ears & nose, nl lips & teeth, nl nasal mucosa & septum Neck: non-tender, supple Respiratory: clear to auscultation, normal air movement Cardiovascular: nl pulses, regular rate and rhythm Gastrointestinal: bowel sounds, soft, tender (mildly, no r/g) Results Result Diagram: 04/04/16 0453 04/04/16 0453 Medications Medications Current Medications Morphine Sulfate (morphine) 3 mg Q4H PRN IV PAIN LEVEL 6-10 Last administered on 04/03/16t 18:20; Admin Dose 3 MG; Start 04/01/16 at 04:00 Ondansetron HCl 4 mg 4 mg Q6H PRN IV NAUSEA AND/OR VOMITING; Start 04/01/16 at 04:00 Ciprofloxacin/ Dextrose 100 ml @ 100 mls/hr Q12 IVPB Last administered on 04/04 20:23; Admin Dose 100 MLS/HR; Start 04/01/16 at 12:00 Metronidazole (Flagyl 500 Mg (Pmx)) 100 ml @ 100 mls/hr Q8 IVPB Last administered on 04/05/16 05:45; Admin Dose 100 MLS/HR; Start 04/01/16 at 22:00 Apixaban (Eliquis) 5 mg BID PO Last administered on 04/04/16 20:23; Admin Dose 5 MG; Start 04/04/16 at 21:00 Senna/Docusate Sodium (Senokot-S) 2 tab DAILY PO Last administered on 08:27; Admin Dose 2 TAB; Start 04/02/16 at 15:30 Ketorolac Tromethamine (Toradol) 15 mg Q6H PRN IV PAIN Last administered on 04:12; Admin Dose 15 MG; Start 04/03/16 at 21:30; Stop 04/06/16 at 21:29 Acetaminophen/ Hydrocodone Bitart ([place] (10/325)) 1 tab Q6H PRN PO PAIN Last administered on 04/04/16 19:17; Admin Dose 1 TAB; Start 04/03/16 at 21:30 Famotidine 20 mg 20 mg DAILY IV ; Start 04/05/16 at 09:00 Sodium Chloride (NS) 1,000 ml @ 50 mls/hr Q20H IV Last administered on 05:47; Admin Dose 50 MLS/HR; Start 04/04/16 at 11:00 EDWINA PACE MD Apr 05, 2016 05:59
[2016-04-05 06:04] LABS: ALBUMIN 3.1 g/dl (3.3-4.9)
[2016-04-05 06:05] LABS: POTASSIUM 4.2 mmol/L (3.5-5.1)
[2016-04-05 06:07] LABS: ALBUMIN/GLOBULIN RATIO 1.19; BILIRUBIN,INDIRECT 0.2 mg/dl (0-1.1); BILIRUBIN,TOTAL 0.2 mg/dl (0.2-1.3); CREATININE 0.67 mg/dl (0.44-1.00); TOTAL PROTEIN 5.7 g/dl (6.1-8.1)
[2016-04-05 06:08] LABS: CALCIUM 8.5 mg/dl (8.4-10.2)
[2016-04-05 08:00] VITALS: BP 140/86; PULSE 62; RESP 22
[2016-04-05] MEDS: FAMOTIDINE 20 MG INJ IV SCH (08:26)
[2016-04-05] MEDS: APIXABAN 5 MG TABLET PO SCH ×2 (08:27→20:10)
[2016-04-05] MEDS: SENNA/DOCUSATE NA (8.6MG/50MG) TAB PO SCH (08:27)
[2016-04-05] MEDS: CIPROFLOXACIN 200 MG/D5W IVPB 100 ML IVPB SCH ×2 (08:28→20:09)
[2016-04-05] MEDS: HYDROCODONE/APAP (10/325) TAB PO PRN ×2 (08:28→18:13)
[2016-04-05 10:34] LABS: HEMOGLOBIN 11.2 g/dl (12.0-16.0); RED BLOOD COUNT 3.66 10^6/ul (4.20-5.40); WHITE BLOOD COUNT 5.5 10^3/ul (4.8-10.8)
[2016-04-05 10:35] LABS: LYMPHOCYTES % 30.1 % (15.0-51.0); MEAN CORPUSCULAR HEMOGLOBIN 30.6 pg (29.0-33.0); MEAN CORPUSCULAR HGB CONC 33.9 g/dl (32.0-37.0); MEAN CORPUSCULAR VOLUME 90.2 fl (82.0-101.0); MEAN PLATELET VOLUME 10.6 fl (7.4-10.4); NEUTROPHILS % 58.1 % (39.0-77.0); PLATELET COUNT 332 10^3/UL (140-440); RED CELL DISTRIBUTION WIDTH 12.3 % (11.5-14.5)
[2016-04-05 10:44] LABS: BASOPHILS % 0.5 % (0.0-2.0); EOSINOPHILS % 2.2 % (0.0-7.0); MONOCYTES % 8.6 % (0.0-11.0)
[2016-04-05 10:45] LABS: EOSINOPHILS # 0.1 10^3/ul (0.0-0.5); LYMPHOCYTES # 1.7 10^3/ul (0.8-2.9); MONOCYTE # 0.5 10^3/ul (0.3-0.9); NEUTROPHIL # 3.2 10^3/ul (1.6-7.5)
--- NOTE | 2016-04-05 12:18 | PN ---
DATE: 04/05/2016 TIME OF EVALUATION: 11:30 a.m. SUBJECTIVE DATA: Complains of abdominal pain, well controlled with analgesics. OBJECTIVE DATA: VITAL SIGNS: Temperature 97.8, pulse is 62, respiratory rate 22, blood pressure 140/86, oxygen saturation 98% on room air. GENERAL: This is a well-built, well-nourished female lying in bed in no apparent distress. HEENT: Head normocephalic and atraumatic. Eyes: Anicteric sclerae. Conjunctivae clear. ENT: Nasal septum is midline. Oral mucosa is dry. NECK: Supple. No JVD noticed. RESPIRATORY: Bilaterally clear to auscultation. No adventitious breath sounds. No use of accessory muscles of respiration. CARDIAC: Regular rate and rhythm. No murmurs heard. ABDOMEN: Soft, nontender, and nondistended. Bowel sounds positive in all 4 quadrants. GENITOURINARY: Deferred. EXTREMITIES: No cyanosis, no clubbing, no edema. Peripheral pulses are palpable. NEUROLOGIC: The patient is awake, alert, and oriented. Cranial nerves are grossly intact. LABORATORY AND DIAGNOSTIC DATA: WBC 5.5, hemoglobin 11.2, hematocrit 33.0, platelet count 332. Sodium 141, potassium 4.0, chloride 104, carbon dioxide 25 , anion gap 16, BUN 4, creatinine 0.67, glucose 89, calcium 8.5, total protein 5.7, albumin 3.1. ASSESSMENT AND PLAN: 1. Superior mesenteric vein thrombosis. Continue therapeutic anticoagulation with factor Xa inhibitors. The patient was seen and evaluated by vascular surgery. No surgical interventions needed at this time. 2. Abdominal pain. Most probably secondary to #1. Continue pain management. The patient is currently on clear liquid diet. Advancement of diet as per consultants. 3. Diarrhea. Stool for Clostridium difficile negative. On empiric antibiotics. 4. Normocytic, normochromic anemia. Etiology unclear. Stool for occult blood pending. Iron panel showing a low iron level and low iron saturation. Replacement of iron will be deferred to hematology. 5. History of multiple miscarriages. The patient's JASSI is negative. Further immunology workup pending. 6. Fluid, electrolytes, and nutrition. Continue clear liquid diet. Advancement of diet as per consultants. 7. Deep venous thrombosis prophylaxis. On therapeutic anticoagulation. 8. Gastrointestinal prophylaxis. On histamine 2 receptor blockers. 9. Continue pain control. Advancement of diet as well as consultants. Monitor in house. The case was discussed with Dr. Rausch. KEITH RAUSCH MD, AM/NAOMI Conf#: [id number] DID#: [id number] MTDD
[2016-04-05 12:34] LABS: PROTEIN C 100 % normal (70-180)
--- NOTE | 2016-04-05 17:51 | PN ---
DATE: 04/05/2016 The patient continues to improve. Her pain scale is down to 3. She is tolerating clear liquids wit hout abdominal pain. Her abdominal examination is benign. PLAN: Full liquids p.o. Continue medical management. Dictated By: ALPHONSO FELIPE/NTS Conf#: [id number] DID#: [id number]
[2016-04-05 20:34] VITALS: BP 138/87; RESP 16
--- NOTE | 2016-04-05 20:42 | PN ---
Date/Time of Note Date/Time of Note DATE: 04/05/16 TIME: 20:38 Assessment/Plan Lines/Catheters IV C[facility] (from [facility]): Peripheral IV Assessment/Plan Chief Complaint/Hosp Course -Superior mesenteric vein thrombosis: It seems the patient has developed a mesenteric vein thrombus that seems to be a bit unusual, given her age. The patient has denied any recent history of alcohol use or a family history of hypercoagulable state. She is on OCP's. I am concerned, given her age, that the patient has developed a thrombosis of her mesenteric vein and would recommend further workup. For now, would recommend holding her OCP's until further hypercoagulable workup has been performed -Continue with anticoagulation -Consider advancing diet slowly secondary to abdominal pain. -CT venogram demonstrated extensive SMV thrombosis. -Appreciate general surgery evaluation, as the patient may require further intervention if she has further propagation of her thrombosis. From a vascular surgery standpoint no further intervention, will continue to monitor the patient. -Recommend hypercoagulable workup and appreciate hematology evaluation, (as the patient has a history of miscarriages x3 in her first trimester, OCP's), Would like to rule out protein C&S deficiency -Discussed the findings, plan and management with the patient and she understands. -Thank you for allowing us to partake in the care of your patient. Please call with any questions. Problems: Subjective 24 Hr Interval Summary no new vascular events overnight Exam/Review of Systems Vital Signs Vitals Vital Signs Date Time Temp Pulse Resp B/P Pulse Ox O2 Delivery O2 Flow Rate FiO2 04/05/16 08:00 97.8 62 22 140/86 98 Room Air Intake and Output 04/04/16 04/04/16 04/05/16 15:00 23:00 07:00 Intake Total 1100 ml 1530 ml 960 ml Balance 1100 ml 1530 ml 960 ml Exam Free Text/Dictation GENERAL: Alert and oriented x3. Some abdominal discomfort. PULMONARY: Clear to auscultation bilaterally. No crackles. CARDIOVASCULAR: S1, S2 present. No murmurs. ABDOMEN: Soft, truncal obesity. Tenderness periumbilical region improving. No peritonitis. EXTREMITIES: Lower extremity palpable femoral pulses, palpable pedal pulses. Motor and sensory intact. Capillary refill 2 to 3 seconds. No ulcers identified. Results Result Diagram: 04/05/16 0459 04/05/16 0459 IBIS COTTO MD Apr 05, 2016 20:42
--- NOTE | 2016-04-05 20:49 | CONS ---
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 The patient has denied any recent history of alcohol use, travel or a family history of hypercoagulable state. agree with anticoagulation, post Lovenox b.i.d at therapeutic dose, now on ELIQUIS hypercoagulable workup , incl tumor markers- P SURG and vascular surg f-up LEUKOCYTOSIS- WITH N DIFF looks reactive monitor IMPROVED ANEMIA- N CYTIC WITH N RDW C/W ACD COMPLETE W-UP MONITOR BLOOD COUNT CLOSELY COUNT STABLE history of miscarriages x3 in her first trimester. JASSI- NEG lupus panel- P Discussed the findings, plan and management with the patient and she understands. Thank you for allowing us to partake in the care of your patient. Please call with any questions. d/w Dr ALLA PHAN Problems: Consultation Date/Type/Reason Admit Date/Time Apr 01, 2016 at 03:26 Initial Consult Date 04/01/16 Type of Consultation: [facility] Referring Provider: ALLA PHAN MD 24 HR Interval Summary Free Text/Dictation SUBJECTIVE DATA: Complains of abdominal pain, well controlled with analgesics. Exam/Review of Systems Vital Signs Vitals Vital Signs Date Time Temp Pulse Resp B/P Pulse Ox O2 Delivery O2 Flow Rate FiO2 04/05/16 08:00 97.8 62 22 140/86 98 Room Air Intake and Output 04/04/16 04/04/16 04/05/16 14:59 22:59 06:59 Intake Total 1100 ml 1530 ml 960 ml Balance 1100 ml 1530 ml 960 ml Exam OBJECTIVE DATA: GENERAL: This is a well-built, well-nourished female lying in bed in no apparent distress. HEENT: Head normocephalic and atraumatic. Eyes: Anicteric sclerae. Conjunctivae clear. ENT: Nasal septum is midline. Oral mucosa is dry. NECK: Supple. No JVD noticed. RESPIRATORY: Bilaterally clear to auscultation. No adventitious breath sounds. No use of accessory muscles of respiration. CARDIAC: Regular rate and rhythm. No murmurs heard. ABDOMEN: Soft, nontender, and nondistended. Bowel sounds positive in all 4 quadrants. GENITOURINARY: Deferred. EXTREMITIES: No cyanosis, no clubbing, no edema. Peripheral pulses are palpable. NEUROLOGIC: The patient is awake, alert, and oriented. Cranial nerves are grossly intact. Results Result Diagram: 04/05/16 0459 04/05/16 0459 Results 24 hrs Laboratory Tests Test 04/05/16 00:10 04/05/16 04:59 Stool Occult Blood NEGATIVE Alanine Aminotransferase (ALT/SGPT) 36 Albumin 3.1 L Albumin/Globulin Ratio 1.19 Alkaline Phosphatase 80 Anion Gap 16 Aspartate Amino Transf (AST/SGOT) 33 Basophils # 0.0 Basophils % 0.5 Blood Urea Nitrogen 4 L Calcium Level 8.5 Carbon Dioxide Level 25 Chloride Level 104 Creatinine 0.67 Direct Bilirubin 0.00 Eosinophils # 0.1 Eosinophils % 2.2 Globulin 2.60 Glucose Level 89 Hematocrit 33.0 L Hemoglobin 11.2 L Indirect Bilirubin 0.2 Lactic Acid Level 0.7 Lymphocytes # 1.7 Lymphocytes % 30.1 Mean Corpuscular Hemoglobin 30.6 Mean Corpuscular Hemoglobin Concent 33.9 Mean Corpuscular Volume 90.2 Mean Platelet Volume 10.6 H Monocytes # 0.5 Monocytes % 8.6 Neutrophils # 3.2 Neutrophils % 58.1 Nucleated Red Blood Cells # 0.0 Nucleated Red Blood Cells % 0.0 Platelet Count 332 Potassium Level 4.2 Red Blood Count 3.66 L Red Cell Distribution Width 12.3 Sodium Level 141 Total Bilirubin 0.2 Total Protein 5.7 L White Blood Count 5.5 Medications Medications Current Medications Morphine Sulfate (morphine) 3 mg Q4H PRN IV PAIN LEVEL 6-10 Last administered on 04/03/16 18:20; Admin Dose 3 MG; Start 04/01/16 at 04:00 Ondansetron HCl 4 mg 4 mg Q6H PRN IV NAUSEA AND/OR VOMITING; Start 04/01/16 at 04:00 Ciprofloxacin/ Dextrose 100 ml @ 100 mls/hr Q12 IVPB Last administered on 04/05 20:09; Admin Dose 100 MLS/HR; Start 04/01/16 at 12:00 Metronidazole (Flagyl 500 Mg (Pmx)) 100 ml @ 100 mls/hr Q8 IVPB Last administered on 04/05/16 14:39; Admin Dose 100 MLS/HR; Start 04/01/16 at 22:00 Apixaban (Eliquis) 5 mg BID PO Last administered on 04/05/16 20:10; Admin Dose 5 MG; Start 04/04/16 at 21:00 Senna/Docusate Sodium (Senokot-S) 2 tab DAILY PO Last administered on 08:27; Admin Dose 2 TAB; Start 04/02/16 at 15:30 Ketorolac Tromethamine (Toradol) 15 mg Q6H PRN IV PAIN Last administered on 14:57; Admin Dose 15 MG; Start 04/03/16 at 21:30; Stop 04/06/16 at 21:29 Acetaminophen/ Hydrocodone Bitart ([place] (10/325)) 1 tab Q6H PRN PO PAIN Last administered on 04/05/16 18:13; Admin Dose 1 TAB; Start 04/03/16 at 21:30 Famotidine 20 mg 20 mg DAILY IV Last administered on 04/05/16 08:26; Admin Dose 20 MG; Start 04/05/16 at 09:00 Sodium Chloride (NS) 1,000 ml @ 50 mls/hr Q20H IV Last administered on 05:47; Admin Dose 50 MLS/HR; Start 04/04/16 at 11:00 ALY HAMILTON MD Apr 05, 2016 20:49
[2016-04-06] MEDS: KETOROLAC 15 MG INJ IV PRN ×2 (02:08→15:46)
[2016-04-06] MEDS: SOD CHLORIDE 0.9% 1,000 ML IV SCH ×2 (03:00→09:33)
[2016-04-06] MEDS: metroNIDAZOLE 500 MG/NS (PMX) 100 ML IVPB SCH (05:44)
[2016-04-06 06:21] LABS: BASOPHILS % 0.6 % (0.0-2.0); EOSINOPHILS # 0.1 10^3/ul (0.0-0.5); EOSINOPHILS % 2.5 % (0.0-7.0); HEMATOCRIT 34.5 % (37.0-47.0); HEMOGLOBIN 11.9 g/dl (12.0-16.0); LYMPHOCYTES # 2.1 10^3/ul (0.8-2.9); LYMPHOCYTES % 38.4 % (15.0-51.0); MEAN CORPUSCULAR HEMOGLOBIN 31.1 pg (29.0-33.0); MEAN CORPUSCULAR HGB CONC 34.4 g/dl (32.0-37.0); MEAN CORPUSCULAR VOLUME 90.3 fl (82.0-101.0); MONOCYTE # 0.6 10^3/ul (0.3-0.9); MONOCYTES % 10.2 % (0.0-11.0); NEUTROPHIL # 2.7 10^3/ul (1.6-7.5); NEUTROPHILS % 48.3 % (39.0-77.0); PLATELET COUNT 362 10^3/UL (140-440); RED BLOOD COUNT 3.82 10^6/ul (4.20-5.40); RED CELL DISTRIBUTION WIDTH 12.5 % (11.5-14.5); UNCORRECTED WBC 5.6 10^3/ul (4.8-10.8); WHITE BLOOD COUNT 5.6 10^3/ul (4.8-10.8)
[2016-04-06 06:22] LABS: CONDITION 1
[2016-04-06 06:23] LABS: MAGNESIUM 2.2 mg/dl (1.7-2.5); PHOSPHORUS 3.8 mg/dl (2.5-4.9)
[2016-04-06 06:33] LABS: POTASSIUM 3.9 mmol/L (3.5-5.1)
[2016-04-06 06:35] LABS: CREATININE 0.72 mg/dl (0.44-1.00)
[2016-04-06 06:36] LABS: CALCIUM 8.6 mg/dl (8.4-10.2)
[2016-04-06 07:18] VITALS: BP 129/81; RESP 18
[2016-04-06] MEDS: FAMOTIDINE 20 MG INJ IV SCH (08:14)
[2016-04-06] MEDS: CIPROFLOXACIN 200 MG/D5W IVPB 100 ML IVPB SCH (08:15)
[2016-04-06] MEDS: APIXABAN 5 MG TABLET PO SCH (08:15)
[2016-04-06] MEDS: SENNA/DOCUSATE NA (8.6MG/50MG) TAB PO SCH (08:15)
--- NOTE | 2016-04-06 10:17 | CONS ---
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 The patient has denied any recent history of alcohol use, travel or a family history of hypercoagulable state. agree with anticoagulation, post Lovenox b.i.d at therapeutic dose, now on ELIQUIS hypercoagulable workup- P tumor markers- NEG SURG and vascular surg f-up LEUKOCYTOSIS- WITH N DIFF looks reactive monitor IMPROVED ANEMIA- N CYTIC WITH N RDW C/W ACD COMPLETE W-UP MONITOR BLOOD COUNT CLOSELY COUNT STABLE history of miscarriages x3 in her first trimester. JASSI- NEG lupus panel- P Discussed the findings, plan and management with the patient and she understands. Thank you for allowing us to partake in the care of your patient. Please call with any questions. d/w Dr ALLA PHAN Problems: Consultation Date/Type/Reason Admit Date/Time Apr 01, 2016 at 03:26 Initial Consult Date 04/01/16 Type of Consultation: [facility] Referring Provider: ALLA PHAN MD 24 HR Interval Summary Free Text/Dictation DOING BETTER Exam/Review of Systems Vital Signs Vitals Vital Signs Date Time Temp Pulse Resp B/P Pulse Ox O2 Delivery O2 Flow Rate FiO2 04/06/16 07:18 98.7 55 18 129/81 96 04/05/16 08:00 Room Air Intake and Output 04/05/16 04/05/16 04/06/16 15:00 23:00 07:00 Intake Total 100 ml 2550 ml 1750 ml Output Total 4 ml Balance 100 ml 2546 ml 1750 ml Exam GENERAL: This is a well-built, well-nourished female lying in bed in no apparent distress. HEENT: Head normocephalic and atraumatic. Eyes: Anicteric sclerae. Conjunctivae clear. ENT: Nasal septum is midline. Oral mucosa is dry. NECK: Supple. No JVD noticed. RESPIRATORY: Bilaterally clear to auscultation. No adventitious breath sounds. No use of accessory muscles of respiration. CARDIAC: Regular rate and rhythm. No murmurs heard. ABDOMEN: Soft, nontender, and nondistended. Bowel sounds positive in all 4 quadrants. GENITOURINARY: Deferred. EXTREMITIES: No cyanosis, no clubbing, no edema. Peripheral pulses are palpable. NEUROLOGIC: The patient is awake, alert, and oriented. Cranial nerves are grossly intact. Results Result Diagram: 04/06/16 0510 04/06/16 0510 Results 24 hrs Laboratory Tests Test 04/06/16 05:10 Anion Gap 16 Basophils # 0.0 Basophils % 0.6 Blood Urea Nitrogen 4 L Calcium Level 8.6 Carbon Dioxide Level 27 Chloride Level 104 Creatinine 0.72 Eosinophils # 0.1 Eosinophils % 2.5 Glucose Level 93 Hematocrit 34.5 L Hemoglobin 11.9 L Lymphocytes # 2.1 Lymphocytes % 38.4 Magnesium Level 2.2 Mean Corpuscular Hemoglobin 31.1 Mean Corpuscular Hemoglobin Concent 34.4 Mean Corpuscular Volume 90.3 Mean Platelet Volume 9.0 Monocytes # 0.6 Monocytes % 10.2 Neutrophils # 2.7 Neutrophils % 48.3 Nucleated Red Blood Cells # 0.0 Nucleated Red Blood Cells % 0.0 Phosphorus Level 3.8 Platelet Count 362 Potassium Level 3.9 Red Blood Count 3.82 L Red Cell Distribution Width 12.5 Sodium Level 143 White Blood Count 5.6 Medications Medications Current Medications Morphine Sulfate (morphine) 3 mg Q4H PRN IV PAIN LEVEL 6-10 Last administered on 04/03/16 18:20; Admin Dose 3 MG; Start 04/01/16 at 04:00 Ondansetron HCl 4 mg 4 mg Q6H PRN IV NAUSEA AND/OR VOMITING; Start 04/01/16 at 04:00 Ciprofloxacin/ Dextrose 100 ml @ 100 mls/hr Q12 IVPB Last administered on 04/06 08:15; Admin Dose 100 MLS/HR; Start 04/01/16 at 12:00 Metronidazole (Flagyl 500 Mg (Pmx)) 100 ml @ 100 mls/hr Q8 IVPB Last administered on 04/06/16 05:44; Admin Dose 100 MLS/HR; Start 04/01/16 at 22:00 Apixaban (Eliquis) 5 mg BID PO Last administered on 04/06/16 08:15; Admin Dose 5 MG; Start 04/04/16 at 21:00 Senna/Docusate Sodium (Senokot-S) 2 tab DAILY PO Last administered on 08:15; Admin Dose 2 TAB; Start 04/02/16 at 15:30 Ketorolac Tromethamine (Toradol) 15 mg Q6H PRN IV PAIN Last administered on 02:08; Admin Dose 15 MG; Start 04/03/16 at 21:30; Stop 04/06/16 at 21:29 Acetaminophen/ Hydrocodone Bitart ([place] (10/325)) 1 tab Q6H PRN PO PAIN Last administered on 04/05/16 18:13; Admin Dose 1 TAB; Start 04/03/16 at 21:30 Famotidine 20 mg 20 mg DAILY IV Last administered on 04/06/16 08:14; Admin Dose 20 MG; Start 04/05/16 at 09:00 Sodium Chloride (NS) 1,000 ml @ 50 mls/hr Q20H IV Last administered on 09:33; Admin Dose 50 MLS/HR; Start 04/04/16 at 11:00 ALY HAMILTON MD Apr 06, 2016 10:17
--- NOTE | 2016-04-06 11:58 | PN ---
DATE: 04/06/2016 Continued marked symptomatic improvement. The patient's pain scale is down to 1. She has not requi red any pain medications. She is tolerating full liquids with no abdominal pain. PLAN: I will advance her diet to a soft diet. The patient can be discharged with outpatient follow up as necessary. Dictated By: ALPHONSO FELIPE/NAOMI Conf#: [id number] DID#: [id number]
--- NOTE | 2016-04-06 14:24 | PN ---
Date/Time of Note Date/Time of Note DATE: 04/06/16 TIME: 14:23 Assessment/Plan VTE Prophylaxis VTE Prophylaxis Intervention: other (Warfarin) Lines/Catheters IV [facility]ter [facility] (from [facility]): Peripheral IV Assessment/Plan Chief Complaint/Hosp Course 1. Superior mesenteric vein thrombosis. Continue therapeutic anticoagulation with factor Xa inhibitors. The patient was seen and evaluated by vascular surgery. No surgical interventions needed at this time. 2. Abdominal pain. Most probably secondary to #1. Continue pain management. The patient is currently on a soft diet. Advancement of diet as per consultants. 3. Diarrhea. Stool for Clostridium difficile negative. On empiric antibiotics. 4. Normocytic normochromic anemia. Etiology unclear. Stool for occult blood pending. Iron panel showing a low iron level are low iron saturation. Replacement of iron will be deferred to hematology. 5. History of multiple miscarriages. The patient's JASSI is negative. Further immunology workup pending. 6. Fluid, electrolytes, and nutrition. Continue soft diet. Advancement of diet as per consultants. 7. Deep venous thrombosis prophylaxis. On therapeutic anticoagulation. 8. Gastrointestinal prophylaxis. On histamine 2 receptor blockers. 9. Continue pain control. The plan was to discharge the patient home on Eliquis. However the patient's health insurance denied Eliquis. The patient's health insurance wants to try warfarin before. Therefore, Eliquis will be discontinued and the patient will be started on warfarin and therapeutic Lovenox until a therapeutic INR is obtained. The case was discussed with Dr. Mabry. Problems: Subjective 24 Hr Interval Summary Free Text/Dictation Abdominal pain well controlled. Able to tolerate a soft diet. Exam/Review of Systems Vital Signs Vitals Vital Signs Date Time Temp Pulse Resp B/P Pulse Ox O2 Delivery O2 Flow Rate FiO2 04/06/16 07:18 98.7 55 18 129/81 96 04/05/16 08:00 Room Air Intake and Output 04/05/16 04/05/16 04/06/16 15:00 23:00 07:00 Intake Total 100 ml 2550 ml 1750 ml Output Total 4 ml Balance 100 ml 2546 ml 1750 ml Exam GENERAL: This is a well-built, well-nourished female lying in bed in no apparent distress. HEENT: Head normocephalic and atraumatic. Eyes: Anicteric sclerae. Conjunctivae clear. ENT: Nasal septum is midline. Oral mucosa is dry. NECK: Supple. No JVD noticed. RESPIRATORY: Bilaterally clear to auscultation. No adventitious breath sounds. No use of accessory muscles of respiration. CARDIAC: Regular rate and rhythm. No murmurs heard. ABDOMEN: Soft, nontender, and nondistended. Bowel sounds positive in all 4 quadrants. GENITOURINARY: Deferred. EXTREMITIES: No cyanosis, no clubbing, no edema. Peripheral pulses are palpable. NEUROLOGIC: The patient is awake, alert, and oriented. Cranial nerves are grossly intact. Results Result Diagram: 04/06/16 0510 04/06/16 0510 Results 24 hrs Laboratory Tests Test 04/06/16 05:10 04/06/16 10:30 Anion Gap 16 Basophils # 0.0 Basophils % 0.6 Blood Urea Nitrogen 4 L Calcium Level 8.6 Carbon Dioxide Level 27 Chloride Level 104 Creatinine 0.72 Eosinophils # 0.1 Eosinophils % 2.5 Glucose Level 93 Hematocrit 34.5 L Hemoglobin 11.9 L Lymphocytes # 2.1 Lymphocytes % 38.4 Magnesium Level 2.2 Mean Corpuscular Hemoglobin 31.1 Mean Corpuscular Hemoglobin Concent 34.4 Mean Corpuscular Volume 90.3 Mean Platelet Volume 9.0 Monocytes # 0.6 Monocytes % 10.2 Neutrophils # 2.7 Neutrophils % 48.3 Nucleated Red Blood Cells # 0.0 Nucleated Red Blood Cells % 0.0 Phosphorus Level 3.8 Platelet Count 362 Potassium Level 3.9 Red Blood Count 3.82 L Red Cell Distribution Width 12.5 Sodium Level 143 White Blood Count 5.6 Lab Scanned Report REFERENCE LAB Medications Medications Current Medications Morphine Sulfate (morphine) 3 mg Q4H PRN IV PAIN LEVEL 6-10 Last administered on 04/03/16 18:20; Admin Dose 3 MG; Start 04/01/16 at 04:00 Ondansetron HCl (Zofran Inj) 4 mg Q6H PRN IV NAUSEA AND/OR VOMITING; Start at 04:00 Senna/Docusate Sodium (Senokot-S) 2 tab DAILY PO Last administered on 08:15; Admin Dose 2 TAB; Start 04/02/16 at 15:30 Ketorolac Tromethamine (Toradol) 15 mg Q6H PRN IV PAIN Last administered on 02:08; Admin Dose 15 MG; Start 04/03/16 at 21:30; Stop 04/06/16 at 21:29 Acetaminophen/ Hydrocodone Bitart ([place] (10)) 1 tab Q6H PRN PO PAIN Last administered on 04/05/16 18:13; Admin Dose 1 TAB; Start 04/03/16 at 21:30 Famotidine 20 mg 20 mg DAILY IV Last administered on 04/06/16 08:14; Admin Dose 20 MG; Start 04/05/16 at 09:00 Sodium Chloride (NS) 1,000 ml @ 50 mls/hr Q20H IV Last administered on 09:33; Admin Dose 50 MLS/HR; Start 04/04/16 at 11:00 Warfarin Sodium (Coumadin) 7.5 mg DAILY@17 PO ; Start 04/06/16 at 17:00; Status UNV Enoxaparin Sodium (Lovenox) 90 mg Q12 SC ; Start 04/06/16 at 21:00; Status UNV KEITH LOUISE NP Apr 06, 2016 14:24
--- NOTE | 2016-04-06 16:03 | CONS ---
Date/Time of Note Date/Time of Note DATE: 04/06/16 TIME: 16:00 Assessment/Plan Assessment/Plan Additional Assessment/Plan Impression: 1. Superior mesenteric vein thrombosis: This is likely causing her abdominal pain. 2. Diarrhea: C. diff negative on 04-03-16. Improved. 3. Anemia r/o GIB. Stool OB negative Recommendation: 1. hematology eval for hypercoagulable state 2. f/u IBD serology to see if it is the cause of her superior mesenteric vein thrombosis 3. advance diet per surgery 4. continue anti-coagulation per hematology 5. f/u surgery for superior mesenteric vein thrombosis Further recommendations depend on clinical course Patient seen in collaboration with Dr. Harkins Consultation Date/Type/Reason Admit Date/Time Apr 01, 2016 at 03:26 Initial Consult Date 04/01/16 Type of Consultation: Gastroenterology Referring Provider: ALLA PHAN MD 24 HR Interval Summary Free Text/Dictation Stool OB negative Hemoglobin stable IBD serology negative Exam/Review of Systems Vital Signs Vitals Vital Signs Date Time Temp Pulse Resp B/P Pulse Ox O2 Delivery O2 Flow Rate FiO2 04/06/16 07:18 98.7 55 18 129/81 96 04/05/16 08:00 Room Air Intake and Output 04/05/16 04/05/16 04/06/16 15:00 23:00 07:00 Intake Total 100 ml 2550 ml 1750 ml Output Total 4 ml Balance 100 ml 2546 ml 1750 ml Exam ead: atraumatic, normocephalic Eyes: nl conjunctiva, nl lids, nl sclera ENMT: mucosa pink and moist, nl external ears & nose, nl lips & teeth, nl nasal mucosa & septum Neck: non-tender, supple Respiratory: clear to auscultation, normal air movement Cardiovascular: nl pulses, regular rate and rhythm Gastrointestinal: bowel sounds, soft, tender (mildly, no r/g) Results Result Diagram: 04/06/16 0510 04/06/16 0510 Results 24 hrs Laboratory Tests Test 04/06/16 05:10 04/06/16 10:30 Anion Gap 16 Basophils # 0.0 Basophils % 0.6 Blood Urea Nitrogen 4 L Calcium Level 8.6 Carbon Dioxide Level 27 Chloride Level 104 Creatinine 0.72 Eosinophils # 0.1 Eosinophils % 2.5 Glucose Level 93 Hematocrit 34.5 L Hemoglobin 11.9 L Lymphocytes # 2.1 Lymphocytes % 38.4 Magnesium Level 2.2 Mean Corpuscular Hemoglobin 31.1 Mean Corpuscular Hemoglobin Concent 34.4 Mean Corpuscular Volume 90.3 Mean Platelet Volume 9.0 Monocytes # 0.6 Monocytes % 10.2 Neutrophils # 2.7 Neutrophils % 48.3 Nucleated Red Blood Cells # 0.0 Nucleated Red Blood Cells % 0.0 Phosphorus Level 3.8 Platelet Count 362 Potassium Level 3.9 Red Blood Count 3.82 L Red Cell Distribution Width 12.5 Sodium Level 143 White Blood Count 5.6 Lab Scanned Report REFERENCE LAB Medications Medications Current Medications Morphine Sulfate (morphine) 3 mg Q4H PRN IV PAIN LEVEL 6-10 Last administered on 04/03/16 18:20; Admin Dose 3 MG; Start 04/01/16 at 04:00 Ondansetron HCl (Zofran Inj) 4 mg Q6H PRN IV NAUSEA AND/OR VOMITING; Start at 04:00 Senna/Docusate Sodium (Senokot-S) 2 tab DAILY PO Last administered on 08:15; Admin Dose 2 TAB; Start 04/02/16 at 15:30 Ketorolac Tromethamine (Toradol) 15 mg Q6H PRN IV PAIN Last administered on 15:46; Admin Dose 15 MG; Start 04/03/16 at 21:30; Stop 04/06/16 at 21:29 Acetaminophen/ Hydrocodone Bitart 1 tab 1 tab Q6H PRN PO PAIN Last administered on 04/05/16 18:13; Admin Dose 1 TAB; Start 04/03/16 at 21:30 Sodium Chloride (NS) 1,000 ml @ 50 mls/hr Q20H IV Last administered on 09:33; Admin Dose 50 MLS/HR; Start 04/04/16 at 11:00 Warfarin Sodium (Coumadin) 7.5 mg DAILY@17 PO ; Start 04/06/16 at 17:00 Enoxaparin Sodium (Lovenox) 90 mg Q12 SC ; Start 04/06/16 at 21:00 Famotidine (Pepcid) 20 mg DAILY PO ; Start 04/07/16 at 09:00 KAMAR PALENCIA Apr 06, 2016 16:02
[2016-04-06] MEDS: WARFARIN 7.5 MG TAB PO SCH (17:17)
[2016-04-06] MEDS ORDERED: ACETAMINOPHEN 325 MG TAB PO PRN (18:30)
[2016-04-06 19:15] VITALS: BP 134/81; RESP 18
[2016-04-06] MEDS: ENOXAPARIN 100 MG/ML SYG SC SCH (20:36)
--- NOTE | 2016-04-06 23:04 | PN ---
Date/Time of Note Date/Time of Note DATE: 04/06/16 TIME: 23:04 Assessment/Plan Lines/Catheters IV Catheter Type (from [facility]): Peripheral IV Assessment/Plan Chief Complaint/Hosp Course -Superior mesenteric vein thrombosis: It seems the patient has developed a mesenteric vein thrombus that seems to be a bit unusual, given her age. The patient has denied any recent history of alcohol use or a family history of hypercoagulable state. She is on OCP's. I am concerned, given her age, that the patient has developed a thrombosis of her mesenteric vein and would recommend further workup. For now, would recommend holding her OCP's until further hypercoagulable workup has been performed -Continue with anticoagulation -Consider advancing diet slowly secondary to abdominal pain. -CT venogram demonstrated extensive SMV thrombosis. -Appreciate general surgery evaluation, as the patient may require further intervention if she has further propagation of her thrombosis. From a vascular surgery standpoint no further intervention, will continue to monitor the patient. -Recommend hypercoagulable workup and appreciate hematology evaluation, (as the patient has a history of miscarriages x3 in her first trimester, OCP's), Would like to rule out protein C&S deficiency -Discussed the findings, plan and management with the patient and she understands. -Thank you for allowing us to partake in the care of your patient. Please call with any questions. Problems: Subjective 24 Hr Interval Summary Constitutional: improved, no complaints Exam/Review of Systems Vital Signs Vitals Vital Signs Date Time Temp Pulse Resp B/P Pulse Ox O2 Delivery O2 Flow Rate FiO2 04/07/16 08:11 98.0 93 15 115/75 98 04/05/16 08:00 Room Air Intake and Output 04/06/16 04/06/16 04/07/16 15:00 23:00 07:00 Intake Total 550 ml 2830 ml 600 ml Balance 550 ml 2830 ml 600 ml Exam Free Text/Dictation GENERAL: Alert and oriented x3. Some abdominal discomfort. PULMONARY: Clear to auscultation bilaterally. No crackles. CARDIOVASCULAR: S1, S2 present. No murmurs. ABDOMEN: Soft, truncal obesity. Tenderness periumbilical region improving. No peritonitis. EXTREMITIES: Lower extremity palpable femoral pulses, palpable pedal pulses. Motor and sensory intact. Capillary refill 2 to 3 seconds. No ulcers identified. Results Result Diagram: 04/06/16 0510 04/06/16 0510 IBIS COTTO MD Apr 06, 2016 23:04
[2016-04-07 06:55] LABS: INR 1.05; PROTIME 13.7 Sec (12.2-14.2); PT RATIO 1.1
[2016-04-07] MEDS ORDERED: FAMOTIDINE 20 MG TAB ONE (07:58)
[2016-04-07] MEDS: SENNA/DOCUSATE NA (8.6MG/50MG) TAB PO SCH (08:04)
[2016-04-07 08:11] VITALS: BP 115/75; RESP 15
[2016-04-07] MEDS: ENOXAPARIN 100 MG/ML SYG SC SCH (08:17)
[2016-04-07] MEDS ORDERED: FAMOTIDINE 20 MG TAB PO SCH (09:00)
--- NOTE | 2016-04-07 10:46 | CONS ---
Date/Time of Note Date/Time of Note DATE: 04/07/16 TIME: 10:45 Assessment/Plan Assessment/Plan Additional Assessment/Plan Impression: 1. Superior mesenteric vein thrombosis: This is likely causing her abdominal pain. 2. Diarrhea: C. diff negative on 04-03-16. Improved. 3. Anemia r/o GIB. Stool OB negative Recommendation: 1. hematology eval for hypercoagulable state 2. f/u IBD serology to see if it is the cause of her superior mesenteric vein thrombosis 3. advance diet per surgery 4. continue anti-coagulation per hematology 5. f/u surgery for superior mesenteric vein thrombosis Further recommendations depend on clinical course Patient seen in collaboration with Dr. Harkins Consultation Date/Type/Reason Admit Date/Time Apr 01, 2016 at 03:26 Initial Consult Date 04/01/16 Type of Consultation: Gastroenterology Referring Provider: ALLA PHAN MD 24 HR Interval Summary Free Text/Dictation Emmie diet Denies abdominal pain Exam/Review of Systems Vital Signs Vitals Vital Signs Date Time Temp Pulse Resp B/P Pulse Ox O2 Delivery O2 Flow Rate FiO2 04/07/16 08:11 98.0 93 15 115/75 98 04/05/16 08:00 Room Air Intake and Output 04/06/16 04/06/16 04/07/16 15:00 23:00 07:00 Intake Total 550 ml 2830 ml 600 ml Balance 550 ml 2830 ml 600 ml Exam Head: atraumatic, normocephalic Eyes: nl conjunctiva, nl lids, nl sclera ENMT: mucosa pink and moist, nl external ears & nose, nl lips & teeth, nl nasal mucosa & septum Neck: non-tender, supple Respiratory: clear to auscultation, normal air movement Cardiovascular: nl pulses, regular rate and rhythm Gastrointestinal: bowel sounds, soft, tender (mildly, no r/g) Results Result Diagram: 04/06/16 0510 04/06/16 0510 Results 24 hrs Laboratory Tests Test 04/07/16 06:13 04/07/16 07:26 04/07/16 08:18 INR International Normalized Ratio 1.05 Prothrombin Time 13.7 Prothrombin Time Ratio 1.1 Lab Scanned Report REFERENCE LAB REFERENCE LAB Medications Medications Current Medications Morphine Sulfate (morphine) 3 mg Q4H PRN IV PAIN LEVEL 6-10 Last administered on 04/03/16 18:20; Admin Dose 3 MG; Start 04/01/16 at 04:00 Ondansetron HCl (Zofran Inj) 4 mg Q6H PRN IV NAUSEA AND/OR VOMITING; Start at 04:00 Senna/Docusate Sodium (Senokot-S) 2 tab DAILY PO Last administered on 08:04; Admin Dose 2 TAB; Start 04/02/16 at 15:30 Acetaminophen/ Hydrocodone Bitart 1 tab 1 tab Q6H PRN PO PAIN Last administered on 04/05/16 18:13; Admin Dose 1 TAB; Start 04/03/16 at 21:30 Sodium Chloride (NS) 1,000 ml @ 50 mls/hr Q20H IV Last administered on 09:33; Admin Dose 50 MLS/HR; Start 04/04/16 at 11:00 Warfarin Sodium (Coumadin) 7.5 mg DAILY@17 PO Last administered on 04/06/16 17 :17; Admin Dose 7.5 MG; Start 04/06/16 at 17:00 Enoxaparin Sodium (Lovenox) 90 mg Q12 SC Last administered on 04/07/16 08:17; Admin Dose 90 MG; Start 04/06/16 at 21:00 Famotidine (Pepcid) 20 mg DAILY PO Last administered on 04/07/16 08:04; Admin Dose 20 MG; Start 04/07/16 at 09:00 Acetaminophen (Tylenol Tab) 650 mg Q6H PRN PO PAIN AND OR ELEVATED TEMP Last administered on 04/06/16 18:45; Admin Dose 650 MG; Start 04/06/16 at 18:30 KAMAR PALENCIA Apr 07, 2016 10:46
--- NOTE | 2016-04-07 11:07 | CONS ---
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 The patient has denied any recent history of alcohol use, travel or a family history of hypercoagulable state. agree with anticoagulation, post Lovenox b.i.d at therapeutic dose, now on ELIQUIS hypercoagulable workup- P tumor markers- NEG SURG and vascular surg f-up LEUKOCYTOSIS- WITH N DIFF looks reactive monitor IMPROVED ANEMIA- N CYTIC WITH N RDW C/W ACD COMPLETE W-UP MONITOR BLOOD COUNT CLOSELY COUNT STABLE history of miscarriages x3 in her first trimester. JASSI- NEG lupus panel- P Discussed the findings, plan and management with the patient and she understands. Thank you for allowing us to partake in the care of your patient. Please call with any questions. d/w Dr ALLA PHAN Problems: Consultation Date/Type/Reason Admit Date/Time Apr 01, 2016 at 03:26 Initial Consult Date 04/01/16 Type of Consultation: [facility] Referring Provider: ALLA PHAN MD 24 HR Interval Summary Free Text/Dictation FEELING BETTER Exam/Review of Systems Vital Signs Vitals Vital Signs Date Time Temp Pulse Resp B/P Pulse Ox O2 Delivery O2 Flow Rate FiO2 04/07/16 08:11 98.0 93 15 115/75 98 04/05/16 08:00 Room Air Intake and Output 04/06/16 04/06/16 04/07/16 15:00 23:00 07:00 Intake Total 550 ml 2830 ml 600 ml Balance 550 ml 2830 ml 600 ml Exam GENERAL: This is a well-built, well-nourished female lying in bed in no apparent distress. HEENT: Head normocephalic and atraumatic. Eyes: Anicteric sclerae. Conjunctivae clear. ENT: Nasal septum is midline. Oral mucosa is dry. NECK: Supple. No JVD noticed. RESPIRATORY: Bilaterally clear to auscultation. No adventitious breath sounds. No use of accessory muscles of respiration. CARDIAC: Regular rate and rhythm. No murmurs heard. ABDOMEN: Soft, nontender, and nondistended. Bowel sounds positive in all 4 quadrants. GENITOURINARY: Deferred. EXTREMITIES: No cyanosis, no clubbing, no edema. Peripheral pulses are palpable. NEUROLOGIC: The patient is awake, alert, and oriented. Cranial nerves are grossly intact. Results Result Diagram: 04/06/16 0510 04/06/16 0510 Results 24 hrs Laboratory Tests Test 04/07/16 06:13 04/07/16 07:26 04/07/16 08:18 INR International Normalized Ratio 1.05 Prothrombin Time 13.7 Prothrombin Time Ratio 1.1 Lab Scanned Report REFERENCE LAB REFERENCE LAB Medications Medications Current Medications Morphine Sulfate (morphine) 3 mg Q4H PRN IV PAIN LEVEL 6-10 Last administered on 04/03/16 18:20; Admin Dose 3 MG; Start 04/01/16 at 04:00 Ondansetron HCl (Zofran Inj) 4 mg Q6H PRN IV NAUSEA AND/OR VOMITING; Start at 04:00 Senna/Docusate Sodium (Senokot-S) 2 tab DAILY PO Last administered on 08:04; Admin Dose 2 TAB; Start 04/02/16 at 15:30 Acetaminophen/ Hydrocodone Bitart 1 tab 1 tab Q6H PRN PO PAIN Last administered on 04/05/16 18:13; Admin Dose 1 TAB; Start 04/03/16 at 21:30 Sodium Chloride (NS) 1,000 ml @ 50 mls/hr Q20H IV Last administered on 09:33; Admin Dose 50 MLS/HR; Start 04/04/16 at 11:00 Warfarin Sodium (Coumadin) 7.5 mg DAILY@17 PO Last administered on 04/06/16 17 :17; Admin Dose 7.5 MG; Start 04/06/16 at 17:00 Enoxaparin Sodium (Lovenox) 90 mg Q12 SC Last administered on 04/07/16 08:17; Admin Dose 90 MG; Start 04/06/16 at 21:00 Famotidine (Pepcid) 20 mg DAILY PO Last administered on 04/07/16 08:04; Admin Dose 20 MG; Start 04/07/16 at 09:00 Acetaminophen (Tylenol Tab) 650 mg Q6H PRN PO PAIN AND OR ELEVATED TEMP Last administered on 04/06/16t 18:45; Admin Dose 650 MG; Start 04/06/16 at 18:30 ALY HAMILTON MD Apr 07, 2016 11:07
--- NOTE | 2016-04-07 14:39 | PDOCDIS ---
Discharge Instructions DIAGNOSIS Discharge Diagnosis: Superior mesenteric vein thrombosis. CONDITION Patient Condition: Stable HOME CARE INSTRUCTIONS: Special Diet: regular FOLLOW UP/APPOINTMENTS Appointments Ricky Cisneros MD Specialty: Internal Medicine Office Address: [address] [place], [place] [id number] Office OTHER ORDERS: Other Orders: 1. Take medications as per prescription. 2. Avoid using oral contraceptive pills. 3. Regular diet as tolerated. 4. Follow-up with your primary care physician in 2 weeks. If you do not have a primary care physician, please call Dr. Ricky Cisneros's office. Please arrange with the primary care physician for follow-up abdominal imaging to evaluate resolution of the thrombus. 5. Use caution with using sharp instruments, operating power tools. Avoid contact sports. KEITH LOUISE NP Apr 07, 2016 14:39
--- NOTE | 2016-04-07 14:42 | PN ---
Date/Time of Note Date/Time of Note DATE: 04/07/16 TIME: 14:39 Assessment/Plan VTE Prophylaxis VTE Prophylaxis Intervention: other (Warfarin) Lines/Catheters IV C[facility]ter Type (from [facility]): Peripheral IV Assessment/Plan Chief Complaint/Hosp Course 1. Superior mesenteric vein thrombosis. Continue therapeutic anticoagulation. The patient was seen and evaluated by vascular surgery. No surgical interventions needed at this time. 2. Abdominal pain. Most probably secondary to #1. Continue pain management. 3. Diarrhea. Stool for Clostridium difficile negative. On empiric antibiotics. 4. Normocytic normochromic anemia. Etiology unclear. Stool for occult blood negative. Iron panel showing a low iron level are low iron saturation. Replacement of iron will be deferred to hematology. 5. History of multiple miscarriages. The patient's JASSI is negative. Further immunology workup pending. 6. Fluid, electrolytes, and nutrition. Continue regular diet. 7. Deep venous thrombosis prophylaxis. On therapeutic anticoagulation. 8. Gastrointestinal prophylaxis. On histamine 2 receptor blockers. 9. Continue pain control. The plan was to discharge the patient home on Eliquis. However the patient's health insurance denied Eliquis. The patient's health insurance wants to try warfarin before. The patient has history of anemia. Although the patient's stool for OB is negative, warfarin will make her more prone to gastrointestinal bleeding. Hence the patient will be a suitable candidate for factor Xa inhibitors such as Eliquis. Will request the patient's insurance for approval for Eliquis. If the patient gets approved for Eliquis, the patient can be discharged today. The case was discussed with Dr. Mabry. The plan of care was explained to the patient. Problems: Subjective 24 Hr Interval Summary Free Text/Dictation Denies any abdominal pain. Exam/Review of Systems Vital Signs Vitals Vital Signs Date Time Temp Pulse Resp B/P Pulse Ox O2 Delivery O2 Flow Rate FiO2 04/07/16 08:11 98.0 93 15 115/75 98 04/05/16 08:00 Room Air Intake and Output 04/06/16 04/06/16 04/07/16 14:59 22:59 06:59 Intake Total 550 ml 2830 ml 600 ml Balance 550 ml 2830 ml 600 ml Exam GENERAL: This is a well-built, well-nourished female lying in bed in no apparent distress. HEENT: Head normocephalic and atraumatic. Eyes: Anicteric sclerae. Conjunctivae clear. ENT: Nasal septum is midline. Oral mucosa is dry. NECK: Supple. No JVD noticed. RESPIRATORY: Bilaterally clear to auscultation. No adventitious breath sounds. No use of accessory muscles of respiration. CARDIAC: Regular rate and rhythm. No murmurs heard. ABDOMEN: Soft, nontender, and nondistended. Bowel sounds positive in all 4 quadrants. GENITOURINARY: Deferred. EXTREMITIES: No cyanosis, no clubbing, no edema. Peripheral pulses are palpable. NEUROLOGIC: The patient is awake, alert, and oriented. Cranial nerves are grossly intact. Results Result Diagram: 04/06/16 0510 04/06/16 0510 Results 24 hrs Laboratory Tests Test 04/07/16 06:13 04/07/16 07:26 04/07/16 08:18 INR International Normalized Ratio 1.05 Prothrombin Time 13.7 Prothrombin Time Ratio 1.1 Lab Scanned Report REFERENCE LAB REFERENCE LAB Medications Medications Current Medications Morphine Sulfate (morphine) 3 mg Q4H PRN IV PAIN LEVEL 6-10 Last administered on 04/03/16 18:20; Admin Dose 3 MG; Start 04/01/16 at 04:00 Ondansetron HCl (Zofran Inj) 4 mg Q6H PRN IV NAUSEA AND/OR VOMITING; Start at 04:00 Senna/Docusate Sodium (Senokot-S) 2 tab DAILY PO Last administered on 08:04; Admin Dose 2 TAB; Start 04/02/16 at 15:30 Acetaminophen/ Hydrocodone Bitart 1 tab 1 tab Q6H PRN PO PAIN Last administered on 04/05/16 18:13; Admin Dose 1 TAB; Start 04/03/16 at 21:30 Sodium Chloride (NS) 1,000 ml @ 50 mls/hr Q20H IV Last administered on 09:33; Admin Dose 50 MLS/HR; Start 04/04/16 at 11:00 Warfarin Sodium (Coumadin) 7.5 mg DAILY@17 PO Last administered on 04/06/16 17 :17; Admin Dose 7.5 MG; Start 04/06/16 at 17:00 Enoxaparin Sodium (Lovenox) 90 mg Q12 SC Last administered on 04/07/16 08:17; Admin Dose 90 MG; Start 04/06/16 at 21:00 Famotidine (Pepcid) 20 mg DAILY PO Last administered on 04/07/16 08:04; Admin Dose 20 MG; Start 04/07/16 at 09:00 Acetaminophen (Tylenol Tab) 650 mg Q6H PRN PO PAIN AND OR ELEVATED TEMP Last administered on 04/06/16 18:45; Admin Dose 650 MG; Start 04/06/16 at 18:30 KEITH LOUISE NP Apr 07, 2016 14:42
[2016-04-07] MEDS ORDERED: Hydrocodone/Apap (10/325) PO (16:19)
[2016-04-07] MEDS ORDERED: APIX5TAB PO (16:19)
[2016-04-07] MEDS ORDERED: FER325 PO (16:19)
[2016-04-07] MEDS: WARFARIN 7.5 MG TAB PO SCH (16:42)
--- NOTE | 2016-04-07 17:46 | DS ---
DATE OF ADMISSION: 04/01/2016 DATE OF DISCHARGE: 04/07/2016 FINAL DIAGNOSES: 1. Superior mesenteric vein thrombosis. The patient was started on therapeutic anticoagulation. 2. Abdominal pain secondary to superior mesenteric vein thrombosis. 3. Possible underlying hypercoagulable state. 4. Normocytic, normochromic anemia. 5. Iron deficiency anemia. 6. History of multiple miscarriages. 7. Overweight with BMI of 28.3 kilograms per meter squared. CONSULTATIONS: 1. Dr. Sandro Harikns, gastroenterology. 2. Dr. Brendan Avitia, vascular surgery. 3. Dr. Suzan Vick hematology/Oncology. 4. Dr. Dann Serna, General Surgery. HOSPITAL COURSE: This is a 35-year-old female with no significant past medical history who presented to [facility] with abdominal pain, nausea , vomiting and diarrhea for about 2 weeks' duration. The patient was transferred to [facility] because of insurance reasons. The patient denied any fevers, chills, chest pain or shortness of breath. The patient underwent a gallbladder ultrasound that showed gallbladder sludge. The patient's CT scan of the abdomen and pelvis showed mesenteric stranding. The patient was admitted to [facility] medical/surgical floor. A gastroenterology consult was called on this patient. The patient was started on adequate pain control. The patient underwent an abdominal angiography that showed extensive occlusive defect throughout the superior mesenteric vein that extends into multiple feeding branches of the superior mesenteric vein with associated enhancement of the superior mesenteric vein and its feeding branches as well as expansion of these veins. The findings are compatible with occlusive thrombosis in the superior mesenteric vein and its feeding branches. Because of these findings, a vascular surgery consult and a hematology consult was called. The patient was also initially evaluated by gastroenterology. Based on the findings, the patient was started on therapeutic anticoagulation. Vascular surgery recommended no surgical intervention at this time. The patient's abdominal pain remained to be consistent and severe enough that required routine analgesics around the clock. Consequently, general surgery consult was also called for any possible surgical intervention for any underlying bowel ischemia. Nevertheless, the patient responded well to the treatment strategy and the patient's diet was advanced as tolerated to a regular consistency diet slowly without significant gastrointestinal symptoms. The patient was initially started on some antibiotics for any underlying ischemic colitis. However, this was discontinued later since it was concluded that the patient's abdominal pain was secondary to extensive superior mesenteric vein thrombosis. Of note, the patient also uses oral contraceptive pills. The patient was advised on discontinuing use of oral contraceptive pills which can increase the patient's susceptibility to thromboembolism. The patient was being evaluated for any hypercoagulable state by Hematology. Some of the patient's hematologic workup is still pending. The patient was also noticed to have normocytic, normochromic anemia. The patient's H and H remained stable. The patient was noted to have iron deficiency. The patient has history of multiple miscarriages. The patient's JASSI and lupus antibody are negative. The etiology of the patient's multiple miscarriages remain unclear. The patient may need outpatient [employer] followup. The initial plan was to discharge the patient home on Eliquis. However, the patient's insurance declined the patient's Eliquis authorization stating that the patient needs to be tried on at least cheaper anticoagulants like warfarin. The patient was started on warfarin and was tried to bridge with Lovenox. Later on after talking to the patient's insurance and specifying the need for the patient to be on Eliquis, the patient's Eliquis prescription was approved and therefore the patient will be discharged home on oral Eliquis. The patient had a longer hospital course because of the patient's severity of symptoms, the slow progress in the patient's condition and the need to be seen by multiple consultants. Today on 04/07/2016, the patient is stable to be discharged home. The patient denied any complaints at the time of discharge. DISCHARGE DISPOSITION/PLAN: Patient will be discharged home today. The patient was instructed to take a regular diet as tolerated. She was instructed to take medications as per prescription. She was instructed to avoid using oral contraceptive pills. She was instructed to follow up with her primary care physician in 2 weeks and if she does not have a primary care physician to please call Dr. Ricky Cisneros's office. The patient was instructed to arrange with her primary care physician to follow up with abdominal imaging to evaluate resolution of the thrombus. The patient was instructed to use caution while using sharp instruments or operating power tools. The patient was instructed to avoid contact sports. The patient verbalized understanding of her discharge instructions. CONDITION AT DISCHARGE: Stable. DISCHARGE MEDICATIONS: 1. Eliquis 5 mg p.o. b.i.d. for 6 months. 2. Ferrous sulfate 325 mg p.o. b.i.d. 3. Thurmond 5/325 one tablet p.o. q.6h. p.r.n. pain. PERTINENT LABORATORY AND DIAGNOSTIC DATA: 1. 12-lead EKG: Normal sinus rhythm. 2. Chest x-ray. No active intrathoracic disease. 3. Abdominal angiography. Extensive occlusive filling defects throughout the superior mesenteric vein that extends into multiple feeding braches of the superior mesenteric vein. There is associated enhancement of the superior mesenteric vein and its feeding branches as well as expansion of this vein. Findings are compatible with occlusive thrombus in the superior mesenteric vein and its feeding branches. Also thrombosis of the portal vein is noted. Associated mid abdominal mesenteric fat stranding surrounding the thrombosed superior mesenteric vein and its feeding branches as well as associated mild to mid abdominal mesenteric adenopathy. Finding likely reflects mesenteritis or mesenteric edema associated with superior mesenteric vein thrombosis. Minimal calcified atherosclerosis in the right common iliac artery. 4. Bilateral lower extremity venous Doppler study. No evidence of DVT involving bilateral lower extremities. 5. Latest CBC: WBC 5.6, hemoglobin 11.9, hematocrit 34.5, platelet count 362 6. Latest BMP: Sodium 142, potassium 3.9, chloride 104, carbon dioxide 20, anion gap 16, BUN 4, creatinine 0.72, glucose 90, calcium 8.6, phosphorus 3.0, magnesium 2.2. 7. Iron panel: Iron 20, TIBC 216, iron saturation 7, ferritin 221. 8. JASSI screen negative and ANCA screen negative. 9. Protein C antibody less than 1. 10. HIV 1&2, antibody negative. 11. Lupus anticoagulant not detected. 12. Protein S activity 79. 13. Myeloperoxidase antibody less than 1. At this time, I would like to thank all the consultants for seeing the patient, doing the necessary procedures and providing clinical recommendations. The case and management of this patient was fully discussed with Dr. Rausch. Approximately 40 minutes was spent on coordinating the discharge on this patient. KEITH RAUSCH MD, AM/NAOMI Conf#: [id number] DID#: [id number]
== END 2016-04-07 17:25 | disposition home or self-care (01) | DRG 442 ==
LOC: MS2 03:26
PROVIDERS: ADMIT Internal Medicine; ATTEND Internal Medicine
DX: I81 Portal vein thrombosis (principal); K55.9 Vascular disorder of intestine, unspecified; D68.59 Other primary thrombophilia; D72.829 Elevated white blood cell count, unspecified; R19.7 Diarrhea, unspecified; D50.9 Iron deficiency anemia, unspecified; E66.3 Overweight; Z68.28 Body mass index [BMI] 28.0-28.9, adult
CPT/HCPCS: 71010; 75635; 80048; 80053; 81240; 81270; 82150; 82270; 82306; 82378; 82607; 82728; 82746; 83036; 83090; 83540; 83605; 83615; 83690; 83735; 83890; 84100; 84443; 84560; 84703; 85025; 85045; 85300; 85302; 85305; 85610; 85613; 85651; 85730; 86021; 86038; 86147; 86300; 86301; 86304; 86703; 87075; 93005; 93923; J0744; J1650; J1885; J2270; J7030; J7042; Q9967